=== PATIENT | male | born 1955 ===

== ENCOUNTER → 2020-06-29 10:42 | Outpatient (BNVA) | payer MEDICARE, MEDICAID, SELFPAY | PROVIDERS: PCP Internal Medicine; Visit Provider Physician Assistant | DX: Z13.89 Encounter for screening for other disorder (principal) | CPT/HCPCS: Q3014 ==

== ENCOUNTER 2020-10-05 06:30 | Day surgery (SDC) | payer MEDICARE, MEDICAID, SELFPAY ==
[2020-10-05 06:41] VITALS: BMI 32.4
[2020-10-05 06:46] VITALS: BP 121/72; PULSE 83; RESP 16; TEMP 36.7; O2SAT 97
[2020-10-05 06:54] LABS: Glucose, Whole Blood 145 mg/dL (60-115)
[2020-10-05] MEDS: Lactated Ringers 1,000 ML 100 ML IVCONT (06:55)
--- NOTE | 2020-10-05 07:13 | P.OP_ITS ---
Operative Note Operative Note Date of Service: 10/05/20 Narrative: Pre-op diagnosis: Colon cancer screening Post-op diagnosis: other (Colon polyps, diverticulosis) Procedure: COLONOSCOPY TILL CECUM WITH BIOPSIES AND SNARE POLYPECTOMY Consent: Indications for the procedure and potential complications of bleeding, perforation, reaction to medications and missed diagnosis were discussed with the patient and informed consent was obtained. Instrument: Olympus PCF H 190 L variable stiffness pediatric colonoscope Monitoring: Vital signs and clinical assessment, intermittent blood pressure monitoring, continuous EKG monitoring, Pulse oximetry and Carbon Dioxide monitoring were done throughout the procedure. Colon withdrawl time was 25 minutes. Procedure: The patient was placed in the left lateral decubitis position and pre-procedure medications were administered. After a digital rectal examination of the ano-rectum, the video colonoscope was inserted into the rectum and advanced through the colon to the cecum. The colonoscope was slowly withdrawn in a retrograde panoramic fashion and the colon mucosa was carefully examined including a retroflexed view of the rectum. Findings and interventions are described below. Procedure Difficulty: Without difficulty Findings: Terminal Ileum: Not evaluated Cecum: Normal Ascending Colon: Normal Transverse Colon: A 10-12 mm sessile polyp removed with a hot snare. A 4-5mm sessile polyp removed with the cold biopsy Descending Colon: Normal Sigmoid Colon: Four 4-8 mm sessile polyps removed with a cold biopsy. Moderate diverticulosis Rectum: A 6-7 mm sessile polyp removed with a cold biopsy. Ano-rectum: Normal Colon preparation: Good after some irrigation. Impression and Post Procedure Diagnosis: Colonoscopy Findings: Seven small to medium sized polyps removed Moderate diverticulosis seen in the sigmoid colon Plan: Await pathology results Patient has an appointment on 10/20/20 in the [facility] with DAKOTAH Moody . Repeat Colonoscopy interval based on path results - in 3-5 years if polyps are adenomatous and 10 years if polyps are hyperplastic. Above findings were reviewed with the patient and [colon polyps] and [diverticulosis] handouts were given in the discharge area Surgeon: Amarilis Vo MD Anesthesia: MAC (Elizabeth Lugo CRNA) Practical Nursing Teacher: Vijay Cast Estimated blood loss (mL): 0 Pathology: other (A- TRANSVERSE COLON POLYPS B- SIGMOID POLYPS C- RECTAL POLYP) Condition: stable Disposition: PACU
--- NOTE | 2020-10-05 07:13 | MHC.SHP ---
Pre-Procedural Eval Section A The patient is an INPATIENT: No The History & Physical has been completed within 30 days and I have reviewed it.: No Section B Chief Complaint: Screening Details of Present Illness: Colon cancer screening Relevant Family History (Specify if Yes): No Relevant Social History: None Present Medications: see Short Stay Collaborative assessment Medical History: Significant History (Back disorder Diabetes Elevated cholesterol GERD (gastroesophageal reflux disease) HTN (hypertension) Sleep apnea) History of Previous Operations: Relevant previous surgery/procedure and date(s) (History of colonoscopy) Allergies: Allergies Allergy/AdvReac Type Severity Reaction Status Date / Time Penicillins [PENICILLINS] Allergy Unknown RASH Verified 04/06/20 10:47 Review of Systems Sugical H&P ROS: Negative: Constitution, Cardiovascular, Respiratory and Gastrointestinal Exam Surgical H&P Exam: Normal: Heart, Normal: Lungs, Normal: Extremities and Normal: Abdomen Plan Diagnosis/Plan: Unchanged I have reviewed the history and physical and performed a pertinent physical examination on my patient. No changes have occurred unless specified.
--- NOTE | 2020-10-05 07:17 | HO.ANESPROP2 ---
HPI - Anesthesia Eval Consult details Narrative: 65 yo male patient for colonoscopy PMFSH Active Problems Active Problems: All Active Problems (Updated 06/29/20 @ 15:23 by Kalyani Roe PA-C) HTN (hypertension) (Acute) Encounter for screening colonoscopy (Acute) Past Medical History Medical History Back disorder Diabetes Elevated cholesterol GERD (gastroesophageal reflux disease) HTN (hypertension) Sleep apnea Family History Family History Father No family history of colorectal cancer Family history of problems with anesthesia: No Surgical History Surgical History (Updated 10/05/20 @ 07:25 by Lazara Lange) History of back surgery Hx of colonoscopy History of Problems with Anesthesia: No Social History Social History Household Members: Spouse Alcohol intake: never Smoking Status: Never smoker Use of substances other than those prescribed or required for medical reasons: No Advance Directives: No Advance Directives Information Provided: Yes Current occupational status: unemployed Meds Allergies Allergy/AdvReac Type Severity Reaction Status Date / Time Penicillins [PENICILLINS] Allergy Unknown RASH Verified 04/06/20 10:47 Home Medications Medication Instructions Recorded Confirmed Last Taken Type atorvastatin 40 mg PO BEDTIME 04/06/20 06/29/20 Unknown History canagliflozin [Invokana] 200 mg PO QAM 04/06/20 06/29/20 Unknown History celecoxib 200 mg PO BID PRN 04/06/20 06/29/20 Unknown History doxazosin 8 mg PO BEDTIME 04/06/20 04/06/20 Unknown History gemfibrozil 600 mg PO BID 04/06/20 06/29/20 Unknown History glimepiride 2 mg PO QAM 04/06/20 06/29/20 Unknown History lisinopril 10 mg PO DAILY 04/06/20 06/29/20 Unknown History loratadine 10 mg PO DAILY 04/06/20 04/06/20 Unknown History omeprazole 20 mg PO DAILY 04/06/20 06/29/20 Unknown History Exam Exam Date and Time: October 05, 202017 Height,Weight and Vital Signs: Height 5 ft 6 in Weight 91.172 kg Last Vital Signs Temp 98.0 F 10/05/20 06:46 Pulse 83 10/05/20 06:46 Resp 16 10/05/20 06:46 BP 121/72 10/05/20 06:46 Pulse Ox 97 10/05/20 06:46 Pertinent Lab Results Pertinent Lab Results: Laboratory Tests 10/05/20 06:50 POC Glucose 145 H Airway Mallampati Class: III TM Dist: >3cm Neck ROM: Full Heart: RRR Lungs: CTAB Assessment and Plan Assessment Anesthesia Assessment: Anesthesia Plan Discussed and Chart Reviewed Final Anesthetic Review NPO: Yes ASA Class: III Final Preanesthetic Review: No Changes in Pt Med Stat, Meds/Allgs Chart Reviewed, Consent Obtained/Reviewed and Anes Risks/Benef Reviewed Patient Risk: Intermediate Procedure Risk: Low Assessment/Block/Sedation in SS: Assess/Block/Sedation-SS Anesthetic Plan Anesthetic Plan: MAC: Disposition: Standard PACU
[2020-10-05 08:12] VITALS: BP 85/60; PULSE 92; RESP 14; TEMP 36.9; O2SAT 95
[2020-10-05 08:26] VITALS: BP 118/59; PULSE 83; RESP 18; O2SAT 97
== END 2020-10-05 10:26 | disposition home or self-care (01) ==
PROVIDERS: PCP Internal Medicine; Visit Provider Internal Medicine Gastroenterology
PROC: 0DJD8ZZ Inspection of Lower Intestinal Tract, Via Natural or Artificial Opening Endoscopic (ICD-10-PCS; CPT 45378; principal; 2020-10-05 07:30)
DX: Z12.11 Encounter for screening for malignant neoplasm of colon (principal); D12.3 Benign neoplasm of transverse colon; K63.5 Polyp of colon; K62.1 Rectal polyp; K57.30 Diverticulosis of large intestine without perforation or abscess without bleeding; K21.9 Gastro-esophageal reflux disease without esophagitis; I10 Essential (primary) hypertension; E11.9 Type 2 diabetes mellitus without complications; Z79.84 Long term (current) use of oral hypoglycemic drugs; Z79.899 Other long term (current) drug therapy
CPT/HCPCS: 45385; 45380; 82947; 88305

== ENCOUNTER → 2020-10-20 12:20 | Outpatient (BNVA) | payer MEDICARE, MEDICAID, SELFPAY | PROVIDERS: PCP Internal Medicine; Visit Provider Physician Assistant | DX: Z13.89 Encounter for screening for other disorder (principal) | CPT/HCPCS: Q3014 ==

== ENCOUNTER 2022-06-04 12:12 | Emergency (ER) | payer MEDICARE, SELFPAY ==
--- NOTE | ~2022-06-04 | XR_ITS ---
EXAMINATION: XR CALCANEUS, RIGHT CLINICAL INFORMATION: Right heel tenderness. COMPARISON: None TECHNIQUE: Lateral and axial views of the right calcaneus were obtained. FINDINGS: The bones and soft tissues are normal. No fracture. Alignment is anatomic. Joint spaces are maintained. No enthesopathic spurs are evident at the calcaneus. Mild to moderate atherosclerosis. XR/XR calcaneus RT min 2V IMPRESSION: Unremarkable right calcaneus.
[2022-06-04 12:46] VITALS: BP 123/80; PULSE 77; RESP 16; TEMP 36.3; O2SAT 98; BMI 31.0
--- NOTE | 2022-06-04 12:47 | ED.EXTPRO ---
HPI - Extremity Problem General Chief complaint: Extremity Injury, Lower <DAKOTAH Poole - Last Filed: 06/04/22 12:48> Stated complaint: R heel pain <DAKOTAH Poole - Last Filed: 06/04/22 12:48> Time Seen by Provider: 06/04/22 13:59 <DAKOTAH Poole - Last Filed: 06/04/22 12:48> Source: patient and traffic director <Hugo Daniels MD - Last Filed: 06/04/22 14:06> Mode of arrival: ambulatory <Hugo Daniels MD - Last Filed: 06/04/22 14:06> Limitations: no limitations <Hugo Daniels MD - Last Filed: 06/04/22 14:06> History of Present Illness HPI Narrative: 67-year-old male history of right heel pain for few months getting worse over the past 2 weeks, pain is localized to the right heel area more with movement and bearing weight, no trauma or injury to the foot, no known vascular disease. <Hugo Daniels MD - Last Filed: 06/04/22 14:06> Related Data Home medications: Home Medications Medication Instructions Recorded Confirmed atorvastatin 40 mg tablet 40 mg PO BEDTIME 04/06/20 06/29/20 canagliflozin 100 mg tablet 200 mg PO QAM 04/06/20 06/29/20 (Invokana) celecoxib 200 mg capsule 200 mg PO BID PRN Pain 04/06/20 06/29/20 doxazosin 8 mg tablet 8 mg PO BEDTIME 04/06/20 04/06/20 gemfibrozil 600 mg tablet 600 mg PO BID 04/06/20 06/29/20 glimepiride 2 mg tablet 2 mg PO QAM 04/06/20 06/29/20 lisinopril 10 mg tablet 10 mg PO DAILY 04/06/20 06/29/20 loratadine 10 mg tablet 10 mg PO DAILY 04/06/20 04/06/20 omeprazole 20 mg tablet,delayed 20 mg PO DAILY 04/06/20 06/29/20 release <DAKOTAH Poole - Last Filed: 06/04/22 12:48> Allergies/Adverse reactions: Allergies Allergy/AdvReac Type Severity Reaction Status Date / Time Penicillins [PENICILLINS] Allergy Unknown RASH Verified 10/20/20 12:20 <DAKOTAH Poole - Last Filed: 06/04/22 12:48> Review of Systems Review of Systems: All other systems are reviewed and are negative Constitutional: Reports as per HPI and Reports no additional constitutional complaints Eyes: Reports as per HPI and Reports no additional eye complaints Reports system reviewed and no additional complaints, except as documented Cardiovascular: Reports as per HPI and Reports no additional cardiovascular complaints Respiratory: Reports as per HPI and Reports no additional respiratory complaints Gastrointestinal: Reports as per HPI and Reports no additional gastrointestinal complaints Genitourinary: Reports no additional female genitourinary complaints Musculoskeletal: Reports no additional musculoskeletal complaints Skin/Breast: Reports system reviewed and no additional complaints, except as docu Psychiatric: Reports no additional psychiatric complaints Endocrine: Reports no additional endocrine complaints Hematologic/Lymphatic: Reports no additional hematologic/lymphatic complaints Allergic/Immunologic: Reports no additional allergic/immunologic complaints Reports system reviewed and no additional complaints, except as documented and Reports Abnormal speech present <Hugo Daniels MD - Last Filed: 06/04/22 14:06> [facility] Past Medical History Medical History: Medical History Back disorder Diabetes Elevated cholesterol GERD (gastroesophageal reflux disease) HTN (hypertension) Sleep apnea <DAKOTAH Poole - Last Filed: 06/04/22 12:48> Surgical History: Surgical History History of back surgery Hx of colonoscopy <DAKOTAH Poole - Last Filed: 06/04/22 12:48> Family History Family History: Family History Father No family history of colorectal cancer <DAKOTAH Poole - Last Filed: 06/04/22 12:48> Social History Social History: Social History Household Members: Spouse Alcohol intake: never Current occupational status: unemployed <DAKOTAH Poole - Last Filed: 06/04/22 12:48> Physical Exam Vital Signs: Vital Signs: Last Vital Signs Temp 97.4 F 06/04/22 12:46 Pulse 77 12/11/22 12:46 Resp 16 06/04/22 12:46 BP 123/80 06/04/22 12:46 Pulse Ox 98 06/04/22 12:46 O2 Del Method 06/04/22 12:46 BMI result Body Mass Index 31.0 <DAKOTAH Poole - Last Filed: 06/04/22 12:48> Vital Signs: Last Vital Signs Temp 97.4 F 06/04/22 12:46 Pulse 77 06/04/22 12:46 Resp 16 06/04/22 12:46 BP 123/80 06/04/22 12:46 Pulse Ox 98 06/04/22 12:46 O2 Del Method 06/04/22 12:46 BMI result Body Mass Index 31.0 Vital signs have been reviewed as appeared to be correct. Blood pressure normal. Heart rate normal. Respiration rate normal. Temperature normal. Oxygen saturation normal. <Hugo Daniels MD - Last Filed: 06/04/22 14:06> Appearance: Alert. Oriented X3. No acute distress. Head: Normal external exam. Normocephalic. Atraumatic. No [place] signs noted. No raccoon eyes noted Eyes: PERRLA. EOMI. Conjunctiva and sclera normal. Eyelids normal. ENT: TM's Normal. Pharynx normal. Uvula midline. Moist mucous membranes. No trismus noted. No drooling noted. No muffled voice noted. Neck: Normal inspection. Neck supple. FROM. No adenopathy. Thyroid Normal. No meningeal signs. No neck mass noted. CVS: Normal heart rate and rhythm. Heart sound normal. No murmurs noted. Pulses normal throughout. Respiratory: No respiratory distress. Painless inspiration. Breath sounds normal. No wheezes/rales/rhonchi noted. Chest nontender. No accessory muscle usage noted or decreased air movement noted. Abdomen: Soft and nontender. Bowel sounds normal in all 4 quadrants. No distention noted. No organomegaly noted. No visible injury noted. Back: No CVA tenderness. Full range of motion noted. Skin: Skin warm and dry. Normal skin color. Normal skin turgor. No rashes/lesions/lacerations noted. Extremities: Right heel tenderness, no redness, no hotness, neurovascular exam is intact to the right foot with a good PT/DP pulsation. Neuro: Oriented X 3. Cranial nerve exam: II-XII are grossly intact No motor deficit. No sensory deficit. Reflexes normal. <Hugo Daniels MD - Last Filed: 06/04/22 14:06> Course Course Course Narrative: RME - 67 yo male with hx DM, HTN, presenting with nontraumatic right heel pain for the last several months, acutely worse in the last 2 weeks. Difficulty ambulating. On exam no diabetic wounds noted, foot is warm and well perfused. Calcaneous is tender. XR pending. <DAKOTAH Poole - Last Filed: 06/04/22 12:48> Reevaluation(s) Reevaluation #1: Right heel pain with no trauma, x-ray is unremarkable physical exam is consistent with right plantar fasciitis patient was instructed to take NSAIDs Q 6 hour if needed and follow-up with legal officer <Hugo Daniels MD - Last Filed: 06/04/22 14:06> Time: 14:03 <Hugo Daniels MD - Last Filed: 06/04/22 14:06> Medical Decision Making Medical Decision Making Differential Diagnoses: Differential diagnosis (Plantar fasciitis, arthritis, fracture.) <Hugo Daniels MD - Last Filed: 06/04/22 14:06> Independent interpretation of EKG, rhythm strip, radiology study: Independent interp EKG,rhythm strip, radiology study I performed an independent interpretation of the: Plain X-Ray (Right heel) My interpretation is no acute fracture <Hugo Daniels MD - Last Filed: 06/04/22 14:06> Discharge Plan Discharge Clinical Impression: Plantar fasciitis of right foot <DAKOTAH Poole - Last Filed: 06/04/22 12:48> Patient Disposition: Home, Self-Care <DAKOTAH Poole - Last Filed: 06/04/22 12:48> Instructions: Plantar Fasciitis (ED) <DAKOTAH Poole - Last Filed: 06/04/22 12:48> Prescriptions: No Action celecoxib 200 mg Capsule 200 mg PO BID PRN (Reason: Pain) atorvastatin 40 mg Tablet 40 mg PO BEDTIME glimepiride 2 mg Tablet 2 mg PO QAM doxazosin 8 mg Tablet 8 mg PO BEDTIME gemfibrozil 600 mg Tablet 600 mg PO BID lisinopril 10 mg Tablet 10 mg PO DAILY loratadine 10 mg Tablet 10 mg PO DAILY omeprazole 20 mg Tablet,Delayed Release (Dr/Ec) 20 mg PO DAILY Invokana 100 mg Tablet 200 mg PO QAM <DAKOTAH Poole - Last Filed: 06/04/22 12:48> Referrals: Naa Chase MD [Primary Care Provider] - Robert Garcia MD [Physician] - Joseluis Garcia DPM [Physician] - <DAKOTAH Poole - Last Filed: 06/04/22 12:48>
== END 2022-06-04 14:47 | disposition home or self-care (01) ==
PROVIDERS: Emergency Provider Emergency Medicine; PCP Internal Medicine
DX: M72.2 Plantar fascial fibromatosis (principal)
CPT/HCPCS: 73650; 99282; 99283

== ENCOUNTER 2022-08-01 17:06 | Emergency (ER) | payer MEDICARE, SELFPAY ==
--- NOTE | ~2022-08-01 | XR_ITS ---
EXAMINATION: XR CHEST CLINICAL INFORMATION: Right sternal border/notch lump COMPARISON: None TECHNIQUE: 2 views of the chest were obtained. FINDINGS: The lungs are clear. No airspace consolidation, pleural effusion, or pneumothorax. The cardiomediastinal silhouette is within normal limits. No acute osseous injury. Assessment of the sternum and parasternal soft tissues/costochondral cartilage is significantly limited via plain radiography. XR/XR chest 2V IMPRESSION: 1. No acute pulmonary process. 2. Assessment of the sternum and paraspinal soft tissues is significantly limited via plain radiography.
[2022-08-01 17:38] VITALS: BP 144/77; PULSE 73; RESP 20; TEMP 36.2; O2SAT 98; BMI 32.1
--- NOTE | 2022-08-01 17:39 | ED_ITS ---
HPI - General Adult General Chief complaint: Skin/Abscess/Foreign Body Stated complaint: Lump on clavicle Related Data Home Medications Medication Instructions Recorded Confirmed atorvastatin 40 mg tablet 40 mg PO BEDTIME 04/06/20 06/29/20 canagliflozin 100 mg tablet 200 mg PO QAM 04/06/20 06/29/20 (Invokana) celecoxib 200 mg capsule 200 mg PO BID PRN Pain 04/06/20 06/29/20 doxazosin 8 mg tablet 8 mg PO BEDTIME 04/06/20 04/06/20 gemfibrozil 600 mg tablet 600 mg PO BID 04/06/20 06/29/20 glimepiride 2 mg tablet 2 mg PO QAM 04/06/20 06/29/20 lisinopril 10 mg tablet 10 mg PO DAILY 04/06/20 06/29/20 loratadine 10 mg tablet 10 mg PO DAILY 04/06/20 04/06/20 omeprazole 20 mg tablet,delayed 20 mg PO DAILY 04/06/20 06/29/20 release Allergies Allergy/AdvReac Type Severity Reaction Status Date / Time Penicillins [PENICILLINS] Allergy Unknown RASH Verified 10/20/20 12:20 [facility] Past Medical History Medical History Back disorder Diabetes Elevated cholesterol GERD (gastroesophageal reflux disease) HTN (hypertension) Sleep apnea Surgical History History of back surgery Hx of colonoscopy Family History Family History Father No family history of colorectal cancer Social History Social History Household Members: Spouse Alcohol intake: never Advance Directives: No Advance Directives Information Provided: No Current occupational status: unemployed Physical Exam ED Vital Signs: Vital Signs - 24 hr 08/01/22 17:38 Temperature 97.2 F Pulse Rate 73 Respiratory Rate 20 Blood Pressure 144/77 H Pulse Oximetry 98 Oxygen Delivery Method Room Air BMI result Body Mass Index 32.1 Course Course Course Narrative: This is an RME: Additional HPI, ROS, PE not included below will be deferred to primary provider. Patient is a 59 male presents emergency department for evaluation of a lump that is felt to the right upper anterior chest, noticed yesterday for the first time while taking a shower. palpable lump to right sternal border just beneath sternal notch. Non painful, non mobile, feels firm in parts. Denies noticing in past. Denies chest pain, shortness of breath, difficulty breathing, cough. Denies injury. Plan: labs, CXR Medical Decision Making Lab Data 08/01/22 19:06 08/01/22 19:06 Labs: Lab Results 08/01/22 08/01/22 Range/Units 19:06 19:06 WBC 6.5 (4.8-10.8) X10*3/uL RBC 5.62 (4.60-5.80) X10*6/uL Hgb 16.3 (14.0-18.0) g/dl Hct 47.8 (42.0-52.0) % MCV 85.1 (80.0-98.0) fL MCH 29.0 (27.0-33.0) pg MCHC 34.1 (31.0-36.0) g/dl RDW 13.0 (11.0-16.0) % Plt Count 147 L (160-400) X10*3/uL MPV 11.4 (9.4-12.4) fL Immature Gran % (Auto) 0.2 (0.0-0.4) % Neut % (Auto) 60.9 (45-73) % Lymph % (Auto) 28.1 (20-40) % [place] % (Auto) 8.8 (2-11) % Eos % (Auto) 1.2 (0-4) % Baso % (Auto) 0.8 (0-2) % Lymph # (Auto) 1.8 (1.2-4.9) X10*3/uL [place] # (Auto) 0.6 (0.1-1.2) X10*3/uL Eos # (Auto) 0.1 (0.0-0.4) X10*3/uL Baso # (Auto) 0.1 (0.0-0.2) X10*3/uL Abs Immat Gran (auto) 0.01 (0.00-0.03) X10*3/uL Absolute Neuts (auto) 3.9 (2.0-8.3) x10*3/uL Absolute Nucleated RBC 0.000 (0.0-0.012) X10*3/uL Nucleated RBC % (auto) 0.0 (0.0-0.2) /100WBC Sodium 139 (135-145) mmol/L Potassium 4.4 (3.3-5.1) mmol/L Chloride 104 (96-108) mmol/L Carbon Dioxide 26 (22-29) mmol/L Anion Gap 13 (12-20) BUN 18 H (9-16) mg/dL Creatinine 1.15 (0.5-1.4) mg/dL Estim Creat Clear Calc 64.6 Estimated GFR > 60 Random Glucose 135 H (60-115) mg/dL Calcium 9.6 (8.4-10.2) mg/dL Total Bilirubin 0.7 (0.0-1.0) mg/dL AST 17 (5-37) U/L ALT 22 (0-40) U/L Alkaline Phosphatase 108 (39-117) U/L Total Protein 7.4 (6.5-8.0) g/dL Albumin 4.2 (3.5-5.0) g/dL Discharge Plan Discharge Prescriptions: No Action celecoxib 200 mg Capsule 200 mg PO BID PRN (Reason: Pain) atorvastatin 40 mg Tablet 40 mg PO BEDTIME glimepiride 2 mg Tablet 2 mg PO QAM doxazosin 8 mg Tablet 8 mg PO BEDTIME gemfibrozil 600 mg Tablet 600 mg PO BID lisinopril 10 mg Tablet 10 mg PO DAILY loratadine 10 mg Tablet 10 mg PO DAILY omeprazole 20 mg Tablet,Delayed Release (Dr/Ec) 20 mg PO DAILY Invokana 100 mg Tablet 200 mg PO QAM
[2022-08-01 19:17] LABS: MANUAL DIFF FLAG NO
[2022-08-01 19:22] LABS: Basophils Absolute Auto 0.1 X10*3/uL (0.0-0.2); Basophils Percent Auto 0.8 % (0-2); Eosinophils Absolute Auto 0.1 X10*3/uL (0.0-0.4); Eosinophils Percent Auto 1.2 % (0-4); Hematocrit 47.8 % (42.0-52.0); Hemoglobin 16.3 g/dl (14.0-18.0); Imm Gran Abs Auto 0.01 X10*3/uL (0.00-0.03); Imm Gran Pct Auto 0.2 % (0.0-0.4); Lymphocytes Absolute Auto 1.8 X10*3/uL (1.2-4.9); Lymphocytes Percent Auto 28.1 % (20-40); Mean Corpuscular HGB Conc 34.1 g/dl (31.0-36.0); Mean Corpuscular Volume 85.1 fL (80.0-98.0); Mean Platelet Volume 11.4 fL (9.4-12.4); Monocytes Absolute Auto 0.6 X10*3/uL (0.1-1.2); Monocytes Percent Auto 8.8 % (2-11); Neutrophils Absolute Auto 3.9 x10*3/uL (2.0-8.3); Neutrophils Percent Auto 60.9 % (45-73); Platelet Count 147 X10*3/uL (160-400); Red Blood Count 5.62 X10*6/uL (4.60-5.80); White Blood Count 6.5 X10*3/uL (4.8-10.8)
[2022-08-01 19:33] LABS: Alanine Aminotransferase 22 U/L (0-40); Albumin Level 4.2 g/dL (3.5-5.0); Alkaline Phosphatase 108 U/L (39-117); Anion Gap 13 (12-20); Aspartate Amino Transferase 17 U/L (5-37); Bilirubin Total 0.7 mg/dL (0.0-1.0); Blood Urea Nitrogen 18 mg/dL (9-16); Calcium 9.6 mg/dL (8.4-10.2); Carbon Dioxide 26 mmol/L (22-29); Chloride 104 mmol/L (96-108); Creatinine Clr Calc Pharmacy 64.6; Estimated Glomerular Filt Rate > 60; Glucose Random 135 mg/dL (60-115); Potassium 4.4 mmol/L (3.3-5.1); Sodium 139 mmol/L (135-145); Total Protein 7.4 g/dL (6.5-8.0)
--- NOTE | 2022-08-01 21:14 | ED.GENADULT ---
HPI - General Adult General Chief complaint: Skin/Abscess/Foreign Body Stated complaint: Lump on clavicle Time Seen by Provider: 08/01/22 21:05 Source: patient Mode of arrival: ambulatory Limitations: no limitations History of Present Illness HPI narrative: 59-year-old male presents emergency room complaining of more prominence to medial aspect of his right clavicle. Patient is any falls or injuries he has no redness or swelling that is larger so came in for evaluation. He has noticed this prior to today when he was showering. Related Data Home Medications Medication Instructions Recorded Confirmed atorvastatin 40 mg tablet 40 mg PO BEDTIME 04/06/20 06/29/20 canagliflozin 100 mg tablet 200 mg PO QAM 04/06/20 06/29/20 (Invokana) celecoxib 200 mg capsule 200 mg PO BID PRN Pain 04/06/20 06/29/20 doxazosin 8 mg tablet 8 mg PO BEDTIME 04/06/20 04/06/20 gemfibrozil 600 mg tablet 600 mg PO BID 04/06/20 06/29/20 glimepiride 2 mg tablet 2 mg PO QAM 04/06/20 06/29/20 lisinopril 10 mg tablet 10 mg PO DAILY 04/06/20 06/29/20 loratadine 10 mg tablet 10 mg PO DAILY 04/06/20 04/06/20 omeprazole 20 mg tablet,delayed 20 mg PO DAILY 04/06/20 06/29/20 release Allergies Allergy/AdvReac Type Severity Reaction Status Date / Time Penicillins [PENICILLINS] Allergy Unknown RASH Verified 10/20/20 12:20 Review of Systems Review of Systems: Review of systems: General: Patient denies any fever chills recent illness or falls Musculoskeletal: Denies back pain or body aches or other injuries HEENT: denies headache, runny nose, ear pain Respiratory: denies shortness of breath, cough Cardiovascular: no chest pain or palpitations : denies dysuria, frequency Abdomen: no nausea vomiting denies abdominal pain Extremities: no swelling, no pain Skin: no diaphoresis Yes all other systems are reviewed and are negative PMFSH Past Medical History Medical History Back disorder Diabetes Elevated cholesterol GERD (gastroesophageal reflux disease) HTN (hypertension) Sleep apnea Surgical History History of back surgery Hx of colonoscopy Family History Family History Father No family history of colorectal cancer Social History Social History Household Members: Spouse Alcohol intake: never Advance Directives: No Advance Directives Information Provided: No Current occupational status: unemployed Physical Exam ED Vital Signs: Vital Signs - 24 hr 08/01/22 17:38 Temperature 97.2 F Pulse Rate 73 Respiratory Rate 20 Blood Pressure 144/77 H Pulse Oximetry 98 Oxygen Delivery Method Room Air BMI result Body Mass Index 32.1 General: Well-appearing well-nourished in no signs of distress HEENT: Normocephalic atraumatic Neck: No signs of JVD, no masses no tenderness or lymphadenopathy Cardiovascular: Regular rate and rhythm Respiratory: Clear to auscultation bilaterally Chest wall the medial aspect of the right clavicle is more prominent than left is nontender patient has no redness Abdomen: Soft nontender no masses rectal exam performed guiac negative quality assurance associate confirmed. Extremities: Normal pedal pulses no signs of edema Skin: Dry warm no rashes Back: No tenderness full ROM Medical Decision Making Medical Decision Making MDM Narrative: X-ray does not show anything of concern I feel comfortable discharging the patient home. Differential Diagnosis Differential Diagnoses: The differential diagnosis associated with the presentation includes Abscess versus cancer versus previous fracture or anatomical variance. Lab Data 08/01/22 19:06 08/01/22 19:06 Labs: Lab Results 08/01/22 08/01/22 Range/Units 19:06 19:06 WBC 6.5 (4.8-10.8) X10*3/uL RBC 5.62 (4.60-5.80) X10*6/uL Hgb 16.3 (14.0-18.0) g/dl Hct 47.8 (42.0-52.0) % MCV 85.1 (80.0-98.0) fL MCH 29.0 (27.0-33.0) pg MCHC 34.1 (31.0-36.0) g/dl RDW 13.0 (11.0-16.0) % Plt Count 147 L (160-400) X10*3/uL MPV 11.4 (9.4-12.4) fL Immature Gran % (Auto) 0.2 (0.0-0.4) % Neut % (Auto) 60.9 (45-73) % Lymph % (Auto) 28.1 (20-40) % [place] % (Auto) 8.8 (2-11) % Eos % (Auto) 1.2 (0-4) % Baso % (Auto) 0.8 (0-2) % Lymph # (Auto) 1.8 (1.2-4.9) X10*3/uL [place] # (Auto) 0.6 (0.1-1.2) X10*3/uL Eos # (Auto) 0.1 (0.0-0.4) X10*3/uL Baso # (Auto) 0.1 (0.0-0.2) X10*3/uL Abs Immat Gran (auto) 0.01 (0.00-0.03) X10*3/uL Absolute Neuts (auto) 3.9 (2.0-8.3) x10*3/uL Absolute Nucleated RBC 0.000 (0.0-0.012) X10*3/uL Nucleated RBC % (auto) 0.0 (0.0-0.2) /100WBC Sodium 139 (135-145) mmol/L Potassium 4.4 (3.3-5.1) mmol/L Chloride 104 (96-108) mmol/L Carbon Dioxide 26 (22-29) mmol/L Anion Gap 13 (12-20) BUN 18 H (9-16) mg/dL Creatinine 1.15 (0.5-1.4) mg/dL Estim Creat Clear Calc 64.6 Estimated GFR > 60 Random Glucose 135 H (60-115) mg/dL Calcium 9.6 (8.4-10.2) mg/dL Total Bilirubin 0.7 (0.0-1.0) mg/dL AST 17 (5-37) U/L ALT 22 (0-40) U/L Alkaline Phosphatase 108 (39-117) U/L Total Protein 7.4 (6.5-8.0) g/dL Albumin 4.2 (3.5-5.0) g/dL Discharge Plan Discharge Clinical Impression: Lump in chest Patient Disposition: Home, Self-Care Instructions: Soft Tissue Chest Tumor (ED) Additional Instructions: Please call to follow up with your doctor. Prescriptions: No Action celecoxib 200 mg Capsule 200 mg PO BID PRN (Reason: Pain) atorvastatin 40 mg Tablet 40 mg PO BEDTIME glimepiride 2 mg Tablet 2 mg PO QAM doxazosin 8 mg Tablet 8 mg PO BEDTIME gemfibrozil 600 mg Tablet 600 mg PO BID lisinopril 10 mg Tablet 10 mg PO DAILY loratadine 10 mg Tablet 10 mg PO DAILY omeprazole 20 mg Tablet,Delayed Release (Dr/Ec) 20 mg PO DAILY Invokana 100 mg Tablet 200 mg PO QAM
[2022-08-01 21:25] VITALS: BP 110/74; PULSE 70; RESP 16; TEMP 36.4; O2SAT 99
== END 2022-08-01 21:35 | disposition home or self-care (01) ==
PROVIDERS: Nurse Practitioner Family; Emergency Provider Student in an Organized Health Care Education/Training Program; PCP Internal Medicine
DX: R22.2 Localized swelling, mass and lump, trunk (principal); Z79.899 Other long term (current) drug therapy
CPT/HCPCS: 36415; 71046; 80053; 85025; 99282; 99283

== ENCOUNTER 2023-10-31 10:55 | Outpatient (REF) | payer MEDICARE, SELFPAY ==
[2023-10-31 15:04] LABS: Alanine Aminotransferase 24 U/L (0-40); Alkaline Phosphatase 82 U/L (39-117); Anion Gap 13 (12-20); Aspartate Amino Transferase 21 U/L (5-37); Bilirubin Total 0.7 mg/dL (0.0-1.0); Blood Urea Nitrogen 18 mg/dL (9-16); Calcium 9.2 mg/dL (8.4-10.2); Carbon Dioxide 24 mmol/L (22-29); Chloride 107 mmol/L (96-108); Cholesterol 163 mg/dL (<200); Estimated Glomerular Filt Rate > 60; Glucose Random 170 mg/dL (60-115); HDL Cholesterol 35 mg/dL (>40); LDL Cholesterol Calculated 68 mg/dL (<100); Potassium 3.6 mmol/L (3.3-5.1); Sodium 140 mmol/L (135-145); Total Protein 7.3 g/dL (6.5-8.0); Triglycerides 300 mg/dL (<150)
[2023-10-31 15:11] LABS: Creatinine Urine 91.36 mg/dL; Microalbum/Creatinine Ratio Ur 51.4 ug/mg cr (<30)
[2023-10-31 15:21] LABS: TSH reflex Free T4 1.41 uIU/mL (0.32-4.0)
== END 2023-10-31 10:56 | disposition home or self-care (01) ==
LOC: HO.CHCLDS 10:55
PROVIDERS: Visit Provider Internal Medicine
DX: Z00.00 Encounter for general adult medical examination without abnormal findings (principal); E11.9 Type 2 diabetes mellitus without complications; E78.49 Other hyperlipidemia
CPT/HCPCS: 36415; 80053; 80061; 82043; 82570; 84443

== ENCOUNTER 2024-04-02 10:53 | Outpatient (AMB) | payer OTHER, SELFPAY ==
[2024-04-02 10:56] VITALS: BP 146/84; PULSE 60; O2SAT 98; BMI 32.1
--- NOTE | 2024-04-02 10:56 | A.OFFVIS_ITS ---
Vital Signs 04/02/24 10:56 Height 5 ft 7 in Weight 205 lb 0.478 oz BMI 32.1 BP 146/84 H Blood Pressure Location Lt brachial Position Sitting Pulse 60 Pulse Source Pulse Oximeter Pulse Oximetry (%) 98 Oxygen Delivery Method Room Air Intake Visit Reasons: Colonoscopy screening Intake Note: Geovanni presents in office today for a scheduled colo consult CC; Pt had cologuard ordered by his PCP. Pt did not decide to exercise this option. This is a recall colo for this pt (q10 years). Pt believes that he might have had polyps per his last colo but cannot recall. Pt recently lost his son (10/2023) Pickling Drum Operator Required: Yes Pickling Drum Operator Name: [facility] welcome desk agent(Provider only) Allergies Penicillins [PENICILLINS] Allergy (Unknown, Verified 04/02/24 10:57) RASH HPI HPI Colonoscopy screening: Details: LAST VISIT WITH GIGI ETHAN 10/20/2020 65-year-old male follows up after recent colonoscopy. Review procedure report as well as pathology. He and his were present on phone conversation while vacationing in [place]. He is aware asymptomatic repeat colonoscopy due to polyps will be in [address] a reminder. As well there is a letter in process that is going to be sent to his home address by -if he has any questions when returning from [place] he will call us with concerns. We appreciate the opportunity assist in care the patient This note constructed using a voice recognition software. While every effort is taken to ensure accuracy loading unit operator powder charging errors may be included. TODAY'S VISIT Patient is here today to discuss going for colonoscopy last colonoscopy in 2020 as mentioned above. Tubular adenoma without high-grade dysplasia or carcinoma found. Recommendation for 3 years screening. Patient denies any issues with anesthesia in the past. No history of sleep apnea. Not on any anticoagulation medication. Patient reports that he is moving his bowels without any issues. No infectious diseases in the past or present. No family history of CRC. Patient denies any cardiac or respiratory symptoms. [facility] Medical History Back disorder GERD (gastroesophageal reflux disease) Diabetes Sleep apnea Elevated cholesterol HTN (hypertension) Surgical History History of back surgery Hx of colonoscopy Family History Father No family history of colorectal cancer Social History Household Members: Spouse Alcohol intake: never Current occupational status: unemployed Review of Systems Const Denies weight gain and Denies weight loss ENT Reports no additional complaints, Denies dysphagia and Denies odynophagia Card Reports no additional complaints Resp Reports no additional complaints GI Denies abdominal pain, Denies belching, Denies melena, Denies bloating, Denies change in bowel habits, Denies dysphagia, Denies excessive flatus, Denies dyspepsia, Denies heartburn, Denies diarrhea, Denies loose stools, Denies nausea, Denies odynophagia and Denies vomiting Reports no additional complaints Musc Reports no additional complaints Neuro Reports no additional complaints Psych Reports no additional complaints Endo Reports no additional complaints Physical Exam Vital Signs: Last Vital Signs Pulse 60 04/02/24 10:56 BP 146/84 H 04/02/24 10:56 Pulse Ox 98 04/02/24 10:56 Oxygen Delivery Method Room Air 04/02/24 10:56 BMI result Body Mass Index 32.1 Const General: healthy appearing and no acute distress Nutritional Appearance: obese Orientation/consciousness: patient oriented x3 Resp Effort & Inspection: normal respiratory effort, able to speak in complete sentences, no tracheal deviation and symmetric chest movement Auscultation: clear to auscultation bilaterally Cardio Rate: regular rate GI Inspection: Yes normal to inspection, No distended and Yes obesity Palpation (GI): Soft to palpation, not firm, nontender and No hepatosplenomegaly present Auscultation: normal bowel sounds General: Yes no CVA tenderness Back/Spine/Pelvis Back: no CVA tenderness Skin General skin exam: elasticity normal, turgor normal and dry skin Neuro General: patient oriented x3 Psych Appearance: grossly normal Mental Status: mental status grossly normal Assessment & Plan Assessment & Plan (1) Diverticulosis large intestine w/o perforation or abscess w/o bleeding: Comment: Maintain high-fiber diet Code(s): K57.30 - Diverticulosis of large intestine without perforation or abscess without bleeding Category: Medical (2) Tubular adenoma: Comment: 65-year-old male, to tubular adenomas and 5 hyperplastic polyp recommend repeat asymptomatic colonoscopy 3 year Code(s): D36.9 - Benign neoplasm, unspecified site Category: Medical (3) Screen for colon cancer: Code(s): Z12.11 - Encounter for screening for malignant neoplasm of colon Plan What to expect before during and after procedure discussed with patient. Patient is familiar as he just had the procedure 3 years ago. Stressed the importance of good bowel prep day before procedure. Clear liquid diet discussed with patient. I will see patient after the procedure. Request to book colonoscopy sent to surgical schedulers. Patient is on Trulicity and is aware that he needs to stop it 7-8 days before the procedure. He is agreeable to this plan and verbalizes understanding of instructions. He was given the opportunity to ask questions and all questions answered. thank you for allowing me in his care Medications: New bisacodyl (Dulcolax (bisacodyl)) take 4 tabs at noon the day before your colonoscopy 20 mg (4 x 5 mg) PO ONCE 1 day 4 tabs 0RF Z12.11 - Encounter for screening for malignant neoplasm of colon polyethylene glycol 3350 (Miralax) As directed by gastro[facility]ology department at [facility] 238 grams PO ONCE 238 grams 0RF Z12.11 - Encounter for screening for malignant neoplasm of colon Coding Level of Care Code New Pt Level 3 (98739) Diagnoses Diverticulosis large intestine w/o perforation or abscess w/o bleeding K57.30 Tubular adenoma D36.9 Screen for colon cancer Z12.11 Time Spent (min) 40 Comment 30 minutes spent with patient and additional 10 minutes spent reviewing his records
== END 2024-04-02 11:47 | disposition home or self-care (01) ==
PROVIDERS: PCP Internal Medicine; Visit Provider Nurse Practitioner Family
DX: K57.30 Diverticulosis of large intestine without perforation or abscess without bleeding (principal); D36.9 Benign neoplasm, unspecified site; Z12.11 Encounter for screening for malignant neoplasm of colon
CPT/HCPCS: 99203

== ENCOUNTER → 2024-04-02 10:53 | Outpatient (BNVA) | payer OTHER, SELFPAY | PROVIDERS: PCP Internal Medicine; Visit Provider Nurse Practitioner Family | DX: K57.30 Diverticulosis of large intestine without perforation or abscess without bleeding (principal); D36.9 Benign neoplasm, unspecified site; Z12.11 Encounter for screening for malignant neoplasm of colon | CPT/HCPCS: 99202 ==

== ENCOUNTER 2024-07-02 14:36 | Outpatient (REF) | payer OTHER, SELFPAY ==
[2024-07-02 18:08] LABS: Cholesterol 134 mg/dL (<200); HDL Cholesterol 32 mg/dL (>40); LDL Cholesterol Calculated 55 mg/dL (<100); Triglycerides 235 mg/dL (<150)
[2024-07-03 08:01] LABS: ~HepC Num1 0.18 S/CO (0.00-0.79); ~Hepatitis C Antibody Nonreactive (Nonreactive)
== END 2024-07-02 14:37 | disposition home or self-care (01) ==
LOC: HO.CHCLDS 14:36
PROVIDERS: Visit Provider Internal Medicine
DX: E78.49 Other hyperlipidemia (principal); I10 Essential (primary) hypertension; E11.9 Type 2 diabetes mellitus without complications
CPT/HCPCS: 36415; 80061; 86803

== ENCOUNTER 2024-07-10 16:22 | Outpatient (REF) | payer OTHER, SELFPAY | END 2024-07-10 16:23 | disposition home or self-care (01) | LOC: HO.CHCLNP 16:22 | PROVIDERS: Visit Provider Internal Medicine | DX: R10.2 Pelvic and perineal pain (principal); R30.0 Dysuria; N41.0 Acute prostatitis | CPT/HCPCS: 87086 ==

== ENCOUNTER 2024-09-16 15:07 | Outpatient (REF) | payer OTHER, SELFPAY | END 2024-09-16 15:08 | disposition home or self-care (01) | LOC: HO.SH 15:07 | PROVIDERS: Visit Provider Internal Medicine | DX: Z01.118 Encounter for examination of ears and hearing with other abnormal findings (principal); H90.3 Sensorineural hearing loss, bilateral | CPT/HCPCS: 92557 ==

== ENCOUNTER 2024-11-05 10:36 | Outpatient (REF) | payer OTHER, SELFPAY ==
--- OUTSIDE RECORDS SUMMARY | 2024-11-05 11:39 | XMS_ITS | Encounter Summary ---
Author Organization [employer] Address [address] [facility] [address] [place] [address] Care Team Providers Care Coffee Urn Attendant Name Role Phone Naa Chase MD Primary Care Provider [phone] Reason for Visit * Reason Comments Med Refill Encounter Details Date Type Department Care Team ([facility] Contact Info) Description 12/17/2022 Refill [facility] [address] [place] [address] Genevieve Chaudhry DO [address] [place] [address] Type 2 diabetes mellitus without complication, without long-term current use of insulin ([facility]) Social History Tobacco Use Types Packs/Day Years Used Date Smoking Tobacco: Never Passive Smoke Exposure: Never Smokeless Tobacco: Never Alcohol Use Standard Drinks/Week Comments Never 0 (1 standard drink = 0.6 oz pur e alcohol) Depression Answer Date Recorded Patient Health Questionnaire-9 Score 0 10/19/2022 Depression Answer Date Recorded Patient Health Questionnaire-2 Score 0 10/19/2022 Sex and Gender Information Value Date Recorded Sex Assigned at Male 04/24/2022 10:16 AM EDT Legal Sex Male 10:16 AM EDT Gender Identity Male 04/24/2022 10:16 AM EDT Sexual Orientation Choose not to disclose 2021 10:16 AM EDT documented as of this encounter Plan of Treatment Upcoming Encounters Date Type Department Care Team ([facility] Contact Info) Description 02/09/2025 10:00 AM EDT Office Visit [facility] [address] [place] [address] Naa Chase MD [address] [place] [address] documented as of this encounter Visit Diagnoses Diagnosis Type 2 diabetes mellitus without complication, without long-term current use of insulin ([facility]) documented in this encounter Additional Health Concerns Assessment Noted Time PHQ-9 Depression Total Score: 0 10/20/19 23 10:42 AM EDT documented as of this encounter Care Teams Coffee Urn Attendant Relationship Specialty Start Date End Date Naa Chase MD [address] [place] [address] PCP - General Internal Medicine 02/19/14 documented as of this encounter
--- OUTSIDE RECORDS SUMMARY | 2024-11-05 11:39 | XMS_ITS | Encounter Summary ---
Author Organization [employer] Address [address] [facility] [address] [place] [address] Care Team Providers Care Panel Machine Setter Name Role Phone Naa Chase MD Primary Care Provider [phone] Reason for Visit * Reason Comments Med Refill Encounter Details Date Type Department Care Team ([facility] st Contact Info) Description 10/14/2024 Refill [facility] [address] [place], [place] [phone] Naa Chase MD [address] [place] [address] Type 2 diabetes mellitus without complication, without long-term current use of insulin ([facility]) Social History Tobacco Use Types Packs/Day Years Used Date Smoking Tobacco: Never Passive Smoke Exposure: Never Smokeless Tobacco: Never Alcohol Use Standard Drinks/Week Comments Never 0 (1 standard drink = 0.6 oz pur e alcohol) Depression Answer Date Recorded Patient Health Questionnaire-9 Score 0 07/10/2024 Patient Health Questionnaire-9 Score 0 07/10/2024 Last PHQ-9: Questionnaire Data Not on file 0 07/10/2024 Housing Stability Answer Date Recorded What is your housing situation today? I have alexy sing 10/23/[address] you li ve. Do you have problems with any of the following? None of the above 10/23/2023 Food Insecurity Answer Date Recorded Within the past 12 months, y ou worried that your food would run out before you got money to buy more: Never True 10/23/2023 Within the past 12 months,th e food you bought just didn't last and you didn't have enough money to get more: Never True Transportation Answer Date Recorded In the past 12 months, has l ack of transportation kept you from medical appts, meetings, work or from getting things needed for daily living? No 10/23/2023 Utilities Answer Date Recorded In the past 12 months, has t he electric, gas, oil or water company threatened to shut off services in your home? No 10/23/2023 Depression Answer Date Recorded Patient Health Questionnaire-2 Score 0 07/10/2024 Internet Access Answer Date Recorded Internet Access Q1 Yes 07/10/2024 Internet Access Q2 Not on file 07/10/2024 Sex and Gender Information Value Date Recorded Sex Assigned at Male 04/24/2022 10:16 AM EDT Legal Sex Male 10:16 AM EDT Gender Identity Male 04/24/2022 10:16 AM EDT Sexual Orientation Choose not to disclose 2021 10:16 AM EDT documented as of this encounter Plan of Treatment Upcoming Encounters Date Type Department Care Team ([facility] st Contact Info) Description 02/09/2025 10:00 AM EDT Office Visit [facility] [address] [place] [address] Naa Chase MD [address] [place] [address] documented as of this encounter Visit Diagnoses Diagnosis Type 2 diabetes mellitus without complication, without long-term current use of insulin ([facility]) documented in this encounter Additional Health Concerns Assessment Noted Time PHQ-9 Depression Total Score: 0 07/10/19 25 4:16 PM EST documented as of this encounter Care Teams Panel Machine Setter Relationship Specialty Start Date End Date Naa Chase MD [address] [place] [address] PCP - General Internal Medicine 02/19/14 documented as of this encounter
--- OUTSIDE RECORDS SUMMARY | 2024-11-05 11:39 | XMS_ITS | Encounter Summary ---
Author Organization [employer] Address [address] [facility] [address] [place] [address] Care Team Providers Care Back Stayer Name Role Phone Naa Chase MD Primary Care Provider [phone] Encounter Details Date Type Department Care Team ([facility] st Contact Info) Description 10/30/2024 Orders Only [facility] [address] [place], [place] [phone] Naa Chase MD [address] [place], [place] [phone] Type 2 diabetes mellitus without complication, without long-term current use of insulin ([facility]) (Primary Dx) Social History Tobacco Use Types Packs/Day Years [...] your housing situation today? I have alexy morales 10/23/[address] you li [...] Upcoming Encounters Date Type Department Care Team (Late st Contact Info) Description 02/09/2025 10:00 AM EDT Office Visit [facility] [address] [place] [address] Naa Chase MD [address] [place] [address] documented as of this encounter Visit Diagnoses Diagnosis Type 2 diabetes mellitus without complication, without long-term current use of insulin ([facility])- Primary documented in this encounter Additional Health Concerns Assessment Noted Time PHQ-9 Depression Total Score: 0 07/10/19 25 4:16 PM EST documented as of this encounter Care Teams Back Stayer Relationship Specialty Start Date End Date Naa Chase MD [address] [place] [address] PCP - General Internal Medicine 02/19/14 documented as of this encounter
--- OUTSIDE RECORDS SUMMARY | 2024-11-05 11:39 | XMS_ITS | Encounter Summary ---
Author Organization [employer] Address [address] [facility] [address] [place] [address] Care Team Providers Care Engine Manager Name Role Phone Naa Chase MD Primary Care Provider [phone] Encounter Details Date Type Department Care Team ([facility] st Contact Info) Description 10/15/2024 Orders Only [facility] [address] [place], [place] [phone] Naa Chase MD [address] [place], [place] [phone] Type 2 diabetes mellitus without complication, without long-term current use of insulin ([facility]) (Primary Dx) Social History Tobacco Use Types [...] Description 02/09/2025 10:00 AM EDT Office Visit [facility] [address] [place] [address] Naa Chase MD [address] [place] [address] documented as of this encounter Visit Diagnoses Diagnosis Type 2 diabetes mellitus without complication, without long-term current use of insulin ([facility])- Primary documented in this encounter Additional Health Concerns Assessment Noted Time PHQ-9 Depression Total Score: 0 07/10/19 25 4:16 PM EST documented as of this encounter Care Teams Engine Manager Relationship Specialty Start Date End Date Naa Chase MD [address] [place] [address] PCP - General Internal Medicine 02/19/14 documented as of this encounter
--- OUTSIDE RECORDS SUMMARY | 2024-11-05 11:39 | XMS_ITS | Encounter Summary ---
Author Organization [employer] Address [address] [facility] [address] [place] [address] Care Team Providers Care Corn Detasseler Machine Operator Name Role Phone Naa Chase MD Primary Care Provider [phone] Reason for Visit * Reason Comments Med Refill Encounter Details Date Type Department Care Team ([facility] Contact Info) Description 11/23/2022 Refill [facility] [address] [place] [address] Genevieve Chaudhry DO [address] [place] [address] Type 2 diabetes mellitus without complication, without long-term current use of insulin ([facility]) Social History Tobacco Use Types Packs/Day Years [...] Upcoming Encounters Date Type Department Care Team ([facility] Contact Info) Description 02/09/2025 10:00 AM EDT Office Visit [facility] [address] [place] [address] Naa Chase MD [address] [place] [address] documented as of this encounter Visit Diagnoses Diagnosis Type 2 diabetes mellitus without complication, without long-term current use of insulin ([facility]) documented in this encounter Additional Health Concerns Assessment Noted Time PHQ-9 Depression Total Score: 0 10/20/19 23 10:42 AM EDT documented as of this encounter Care Teams Corn Detasseler Machine Operator Relationship Specialty Start Date End Date Naa Chase MD [address] [place] [address] PCP - General Internal Medicine 02/19/14 documented as of this encounter
--- OUTSIDE RECORDS SUMMARY | 2024-11-05 11:39 | XMS_ITS | Encounter Summary ---
Author Organization [employer] Address [address] [facility] 7[address] [place] [address] Care Team Providers Care Telecommunications Cable Jointer Name Role Phone Naa Chase MD Primary Care Provider [phone] Reason for Visit * Reason Comments Med Refill Encounter Details Date Type Department Care Team ([facility] Contact Info) Description 12/06/2022 Refill [facility] [address] [place] [address] Genevieve Chaudhry DO [address] [place] [address] Type 2 diabetes mellitus without complication, without long-term current use of insulin ([facility]) Social History Tobacco Use Types Packs/Day Years [...] Upcoming Encounters Date Type Department Care Team ([facility] Contact Info) Description 02/09/2025 10:00 AM EDT Office Visit [facility] [address] [place] [address] Naa Chase MD [address] [place] [address] documented as of this encounter Visit Diagnoses Diagnosis Type 2 diabetes mellitus without complication, without long-term current use of insulin ([facility]) documented in this encounter Additional Health Concerns Assessment Noted Time PHQ-9 Depression Total Score: 0 10/20/19 23 10:42 AM EDT documented as of this encounter Care Teams Telecommunications Cable Jointer Relationship Specialty Start Date End Date Naa Chase MD [address] [place] [address] PCP - General Internal Medicine 02/19/14 documented as of this encounter
--- OUTSIDE RECORDS SUMMARY | 2024-11-05 11:39 | XMS_ITS | Encounter Summary ---
Author Organization [employer] Address [address] [facility] 7[address] [place] [address] Care Team Providers Care Machine Hostler Name Role Phone Naa Chase MD Primary Care Provider [phone] Encounter Details Date Type Department Care Team ([facility] st Contact Info) Description 11/05/2024 10:00 AM EDT Office Visit [facility] [address] [place], [place] [phone] Naa Chase MD [address] [place] [address] Essential hypertension (Primary Dx); Type 2 diabetes mellitus without complication, without long-term current use of insulin ([facility]) Social History Tobacco Use Types Packs/Day Years [...] AM EDT documented as of this encounter Last Filed Vital Signs Vital Sign Reading Time Taken Comments Blood Pressure 116/72 11/05/2024 9:54 AM EDT Pulse 81 11/05/2024 9:54 AM EDT Temperature 36.6 ??C (97.9 ??F) 11/05/2024 9:54 AM ED T Respiratory Rate 20 11/05/2024 9:54 AM EDT Oxygen Saturation 98% 11/05/2024 9:54 AM EDT Inhaled Oxygen Concentration - - Weight 92.1 kg (203 lb) 11/05/2024 9:54 AM EDT Height 169 cm (5' 6.54 ) 11/05/2024 9:54 AM EDT Body Mass Index 32.24 11/05/2024 9:54 AM EDT documented in this encounter Plan of Treatment Upcoming Encounters Date Type Department Care Team (Late st Contact Info) Description 02/09/2025 10:00 AM EDT Office Visit [facility] [address] [place] [address] Naa Chase MD [address] [place] [address] Scheduled Orders Name Type Priority Associated Diagnoses Orde r Schedule POCT Glucose Point of Care Testing Routine Type 2 diabetes mellitus without complication, without long-term current use of insulin ([facility]) Ordered: 11/05/2024 Albumin, Random Urine W/Creatinine Lab Routine Type 2 diabetes mellitus without complication, without long-term current use of insulin (CMS/HCC) Expected: 11/05/2024 (Approximate), Expires: 11/05/2025 documented as of this encounter Visit Diagnoses Diagnosis Essential hypertension- Primary Unspecified essential hypertension Type 2 diabetes mellitus without complication, without long-term current use of insulin ([facility]) documented in this encounter Additional Health Concerns Assessment Noted Time PHQ-9 Depression Total Score: 0 07/10/19 25 4:16 PM EST documented as of this encounter Care Teams Machine Hostler Relationship Specialty Start Date End Date Naa Chase MD [address] [place] [phone] PCP - General Internal Medicine 02/19/14 documented as of this encounter
--- OUTSIDE RECORDS SUMMARY | 2024-11-05 11:39 | XMS_ITS | Clinical Summary ---
Author Organization [employer] Address [address] [facility] 7[address] [place] [address] Care Team Providers Care Flasher Adjuster Name Role Phone Naa Chase MD Primary Care Provider [phone] Allergies Active Allergy Reactions Criticality Noted Date Comments Penicillin V Unknown 06/20/2010 Penicillins 09/07/2022 Medications nystatin (Mycostatin) cream Apply topically every 12 (twelve) hours. 30 g 023 Active candesartan (Atacand) 4 MG tabletIndications:E ssential hypertension TAKE 1 TABLET (4 MG) BY MOUTH IN THE MORNING 90 tablet 3 024 2024 Active nystatin (Mycostatin) 061769 UNIT/GM powderIndications:I ntertrigo of web of toe Apply topically 2 times daily. 60 g 024 2024 Active glimepiride (Amaryl) 2 MG tabletIndications:T ype 2 diabetes mellitus without complication, without long-term current use of insulin ([facility]) TAKE 1 TABLET (2 MG) BY MOUTH IN THE MORNING 90 tablet 3 024 Active doxazosin (Cardura) 8 MG tabletIndications:B enign prostatic hyperplasia, unspecified whether lower urinary tract symptoms present TAKE 1 TABLET BY MOUTH AT BEDTIME 90 tablet 3 024 Active cetirizine (ZyrTEC) 10 MG tabletIndications:S easonal allergies Take 1 tablet (10 mg) by mouth Once per day. 90 tablet 3 025 2025 Active celecoxib (CeleBREX) 200 MG capsuleIndications: Chronic bilateral low back pain without sciatica TAKE 1 CAPSULE(200 MG) BY MOUTH IN THE MORNING 30 capsule 3 025 Active atorvastatin (Lipitor) 40 MG tabletIndications:O ther hyperlipidemia TAKE 1 TABLET BY MOUTH EVERY DAY IN THE MORNING 90 tablet 2 025 Active famotidine (Pepcid) 20 MG tabletIndications:C hronic gastroesophageal reflux disease TAKE 1 TABLET BY MOUTH AT BEDTIME 90 tablet 2 025 Active Dulaglutide (Trulicity) 3 MG/0.5ML solution auto-injectorIndica tions:Type 2 diabetes mellitus without complication, without long-term current use of insulin ([facility]) Inject 3 mg under the skin 1 (one) time per week. 2 mL 11 Active Blood Glucose Monitoring Suppl (FreeStyle Stanton Lite) w/Device kitIndications:Type 2 diabetes mellitus without complication, without long-term current use of insulin (CMS/[facility]) Use to test blood sugar 1 times daily 1 kit Active Alcohol Swabs (Alcohol Prep) padsIndications:Typ e 2 diabetes mellitus without complication, without long-term current use of insulin (CMS/[facility]) Check BS once a day 100 each 025 Active FREESTYLE LITE test stripIndications:Ty pe 2 diabetes mellitus without complication, without long-term current use of insulin (CMS/HCC) Check BS once a day 100 each 025 Active Lancets Ultra Thin 30G miscIndications:Typ e 2 diabetes mellitus without complication, without long-term current use of insulin ([facility]) Check BS once a day 100 each Active empagliflozin (Jardiance) 10 MG Take 1 tablet (10 mg) by mouth Once per day. 30 tablet 1 025 Active empagliflozin (Jardiance) 10 MGIndications:Type 2 diabetes mellitus without complication, without long-term current use of insulin (CMS/HCC) Take 1 tablet (10 mg) by mouth Once per day. 30 tablet 11 025 2025 Active Alcohol Swabs (Alcohol Prep) padsIndications:Typ e 2 diabetes mellitus without complication, without long-term current use of insulin (CMS/[facility]) Check BS once a day 100 each 3 023 2024 Discontinued(R eorder (will not trigger notification to Pharmacy)) FREESTYLE LITE test stripIndications:Ty pe 2 diabetes mellitus without complication, without long-term current use of insulin ([facility]) Check BS once a day 100 each 3 023 2024 Discontinued(R eorder (will not trigger notification to Pharmacy)) Lancets Ultra Thin 30G miscIndications:Typ e 2 diabetes mellitus without complication, without long-term current use of insulin ([facility]) Check BS once a day 100 each 3 023 2024 Discontinued(R eorder (will not trigger notification to Pharmacy)) dapagliflozin (Farxiga) 10 MGIndications:Type 2 diabetes mellitus without complication, without long-term current use of insulin ([facility]) Take 1 tablet (10 mg) by mouth in the morning. 90 tablet 3 023 2024 Discontinued(R eorder (will not trigger notification to Pharmacy)) famotidine (Pepcid) 20 MG tabletIndications:C hronic gastroesophageal reflux disease TAKE 1 TABLET BY MOUTH AT BEDTIME 90 tablet 3 024 2024 Discontinued(R eorder (will not trigger notification to Pharmacy)) atorvastatin (Lipitor) 40 MG tabletIndications:O ther hyperlipidemia TAKE 1 TABLET BY MOUTH EVERY DAY IN THE MORNING 90 tablet 2 024 2024 Discontinued Dulaglutide (Trulicity) 3 MG/0.5ML solution auto-injectorIndica tions:Type 2 diabetes mellitus without complication, without long-term current use of insulin ([facility]) Inject 3 mg under the skin every 7 (seven) days AND 3 mg every 7 (seven) days. 2 mL 2 025 2024 Discontinued(D ose adjustment) Dulaglutide (Trulicity) 4.5 MG/0.5ML solution auto-injectorIndica tions:Type 2 diabetes mellitus without complication, without long-term current use of insulin ([facility]) Inject 4.5 mg under the skin every 7 (seven) days. 2 mL 1 025 2024 Discontinued dapagliflozin (Farxiga) 10 MGIndications:Type 2 diabetes mellitus without complication, without long-term current use of insulin (CMS/HCC) Take 1 tablet (10 mg) by mouth Once per day. 90 tablet 3 025 2024 Discontinued(A lternate therapy) Active Problems Problem Noted Date Diagnosed Date Decreased hearing of both ears 08/21/2024 Type 2 diabetes mellitus 09/07/2022 Hyperlipidemia 09/07/2022 BPH (benign prostatic hyperplasia) 09/07/2022 Chronic bilateral low back pain 09/07/2022 Chronic gastroesophageal reflux disease 09/08/19 Essential hypertension 06/06/2011 Encounters Date Type Department Care Team Description 11/05/2024 10:00 AM EDT Office Visit [facility] [address] [place] [address] Naa Chase MD Essential hypertension (Primary Dx); Type 2 diabetes mellitus without complication, without long-term current use of insulin (CMS/HCC) 11/05/2024 Travel 10/30/2024 Orders Only [facility] [address] [place] [address] Naa Chase MD Type 2 diabetes mellitus without complication, without long-term current use of insulin (CMS/HCC) (Primary Dx) 10/30/2024 Telephone [facility] [address] [place] [address] Jennifer Newton PharmD 10/22/2024 9:00 AM EDT Office Visit [facility] [address] [place] [address] Naa Chase MD Type 2 diabetes mellitus without complication, without long-term current use of insulin (CMS/HCC) (Primary Dx); Type 2 diabetes mellitus without complication, without long-term current use of insulin (CMS/HCC); Essential hypertension 10/22/2024 Travel 10/20/2024 Telephone [facility] [address] [place] [address] Naa Chase MD Medication Question 10/19/2024 Refill [facility] [address] [place] [address] Jose Dubon MD Other hyperlipidemia; Chronic gastroesophageal reflux disease 10/19/2024 Refill [facility] [address] [place] [address] Naa Chase MD Chronic gastroesophageal reflux disease 10/15/2024 Orders Only [facility] [address] [place] [address] Naa Chase MD Type 2 diabetes mellitus without complication, without long-term current use of insulin ([facility]) (Primary Dx) 10/15/2024 Telephone [facility] [address] [place] [address] Naa Chase MD Medication Question 10/14/2024 Refill [facility] [address] [place] [address] aNa Chase MD Type 2 diabetes mellitus without complication, without long-term current use of insulin ([facility]) 08/30/2024 Refill [facility] [address] [place] [address] Naa Chase MD Chronic bilateral low back pain without sciatica 08/21/2024 1:00 PM EST Office Visit [facility] [address] [place] [address] Naa Chase MD Decreased hearing of both ears (Primary Dx); Pelvic pain; Perineal pain 08/21/2024 Travel 08/18/2024 Telephone [facility] [address] [place] [address] Naa Chase MD chart prep from Last 3 Months Immunizations Immunization Administration Dates Next Due Influenza injectable quadrivalent preservative f ree 06/05/2016,07/07/2015 Influenza, IIV3, injectable 05/09/2006 Pneumococcal Polysaccharide PPSV23 02/17/2005 TD (adult), 2 Lf tetanus tox oid, preservative free, adsorbed 10/30/2002 Tdap 01/01/2020 Zoster, Recombinant 01/01/2020 Social History Tobacco Use Types Packs/Day Years Used Date Smoking Tobacco: Never Passive Smoke Exposure: Never Smokeless Tobacco: Never Tobacco Cessation:Counseling Given: Not Answered Alcohol Use Standard Drinks/Week Comments Never 0 [...] not to disclose 2021 10:16 AM EDT Last Filed Vital Signs Vital Sign Reading [...] Mass Index 32.24 11/05/2024 9:54 AM EDT Plan of Treatment Upcoming Encounters Date Type Department Care Team (Late st Contact Info) Description 02/09/2025 10:00 AM EDT Office Visit [facility] [address] [place] [address] Naa Chase MD [address] [place] [address] Health Maintenance Due Date Last Done Comments CT Colonography 1954 FIT DNA/Cologuard 1954 FIT 1954 FOBT 1954 Sigmoidoscopy 1954 Eye Exam 1964 Dental Oral Exam 09/04/2023 03/05/2023 Colonoscopy 10/21/2023 10/20/2020 Colorectal Cancer Screening 10/21/2023 Diabetes: Urine Protein Screening 10/30/2024 10/31/2023, 09/25/2022, 09/02/2019 Dental Prophylaxis 11/25/2024 05/26/2024, 0 09/04/2023, 03/05/2023 Influenza Vaccine (#1) 2024 6, 07/07/2015, 05/09/2006 Postponed from 02/24/2024 (Patient Refused) Diabetes: Hemoglobin A1C 01/21/202510/22/ 025, 07/02/2024, 02/21/2024, Additional history exists Pneumococcal Vaccine: 50+ Years (2 of 2 - PCV) 02/20/2025 02/17/2005 Postponed from 02/17/2006 (Patient Refused) Zoster Vaccines (2 of 2) 02/20/2025 01/01/2020 Pos tponed from 02/26/2020 (Patient Refused) Dental X-Ray: Bitewings 05/27/2025 05/26/2024, 03/05 COVID-19 Vaccine ( season) 2025 12/03/2020, 11/05/2020 Postponed from 02/24/2024 (Patient Refused) Diabetes: Foot Exam 07/02/2025 07/02/2024, 04/20/2023, 04/20/2023, Additional history exists Lipid Panel 07/02/2025 07/02/2024, 05/0 01/2024, 09/25/2022 Alcohol/Substance Use Screening 07/10/2025 07/10/2024 Depression Screening 07/10/2025 07/10/2024, 07/10/19 SDOH Screening 07/10/2025 07/10/2024 Tobacco Screening 11/05/2025 11/05/2024 Dental X-Ray: Full Mouth 03/06/2026 03/05/2023 RSV Patients and Patients Aged 60 years or older (1 - 1-dose 75+ series) 2029 DTaP/Tdap/Td Vaccines (2 - Td or Tdap) 12/31/2029 01/01/2020, 10/30/2002 Hepatitis C Screening Completed 07/02/2024 HIB Vaccines Aged Out No longer eligi ble based on patient's age to complete this topic HPV Vaccines Aged Out No longer eligi ble based on patient's age to complete this topic Hepatitis A Vaccines Aged Out No long er eligible based on patient's age to complete this topic Hepatitis B Vaccines Aged Out No long er eligible based on patient's age to complete this topic IPV Vaccines Aged Out No longer eligi ble based on patient's age to complete this topic Meningococcal B Vaccine Aged Out No l onger eligible based on patient's age to complete this topic Meningococcal Vaccine Aged Out No kali zain eligible based on patient's age to complete this topic RSV under 20 months Aged Out No longe r eligible based on patient's age to complete this topic Rotavirus Vaccines Aged Out No longer eligible based on patient's age to complete this topic Procedures Procedure Name Priority Date/Time Associated Diagnosis Comments POCT GLUCOSE Routine 10/22/2024 11:46 AM EDT Type 2 diabetes mellitus without complication, without long-term current use of insulin ([facility]) POCT GLYCATED HEMOGLOBIN, TOTAL Routine 10/22/2024 11:45 AM EDT Type 2 diabetes mellitus without complication, without long-term current use of insulin (CMS/HCC) AMB REFERRAL TO AUDIOLOGY Routine 09/16/2024 Decreased hearing of both ears HEPATITIS C AB W/REFL TO HCV RNA, QN, PCR Routine 07/02/2024 2:38 PM EST Essential hypertension Type 2 diabetes mellitus without complication, without long-term current use of insulin (CMS/HCC) LIPID PANEL, STANDARD Routine 07/02/2024 2:38 PM EST Other hyperlipidemia Full PROPHYLAXIS - ADULT Routine 05/26/2024 11:00 AM EST BITEWINGS - 4 RADIOGRAPHIC IMAGES Routine 05/26/2024 11:00 AM EST ALBUMIN, RANDOM URINE W/CREATININE Routine 10/31/2023 11:00 AM EDT Type 2 diabetes mellitus without complication, without long-term current use of insulin (CMS/HCC) Annual physical exam INTRAORAL - COMPLETE SERIES OF RADIOGRAPHIC IMAGES Routine 03/05/2023 9:00 AM EDT PERIODIC ORAL EVALUATION - ESTABLISHED PATIENT Routine 03/05/2023 9:00 AM EDT HM COLONOSCOPY Routine 10/20/2020 from Last 3 Months or Most Recently Relevant to Health Maintenance Results * (ABNORMAL) POCT Glucose (10/22/2024 11:46 AM EDT) Glucose Blood, POC 208(A) 60 - 200 mg/dL QC Media Lot # [id number] Lot# Expiration Date 659,025 Comment:fasting Blood Capillary blood specimen / Unknown 10/22/2024 11:46 AM EDT Naa Chase MD POINT OF CARE TEST ENTER/ED IT ORDERABLES Final Result * (ABNORMAL) POCT HGB A1C (10/22/2024 11:45 AM EDT) Hemoglobin A1C 8.5(A) 4.0 - 6.0 % QC Media Lot # [id number] Lot# Expiration Date [id number] Blood 10/22/2024 11:4 5 AM EDT Naa Chase MD POINT OF CARE TEST ENTER/ED IT ORDERABLES Final Result * Referral to Audiology (09/16/2024) Naa Chase MD OUTPATIENT REFERRAL ORDERAB LES Final Result * Hepatitis C Antibody with Reflex to HCV, RNA, Quantitative, Real-Time PCR (07/02/2024 2:38 PM EST) Hepatitis C Antibody Nonreactive Nonreactive [facility] Comment:Antibodies to HCV no t detected; does not exclude early acuteHCV infection. Blood Venous blood specimen / Unknown 07/02/2024 2:38 PM EST 07/02/2024 5:26 PM EST Naa Chase MD LAB BLOOD ORDERABLES Final Result [facility] [address] [place] [address] [phone] * (ABNORMAL) Lipid Panel, Standard (07/02/2024 2:38 PM EST) Triglycerides 235(H) <150 mg/dL [facility] Comment:Desirable Triglyceri de: less than 150 mg/dLBorderline High Triglyceride 150-199 mg/dLHigh Triglyceride: 200-499 mg/dLVery High Triglyceride: greater than or equal to 5OO mg/dL Cholesterol 134 <200 mg/dL [facility] Comment:Desirable Cholestero l: less than 200 mg/dLBorderline High Cholesterol: 200-239 mg/dLHigh Cholesterol: greater than 239 mg/dL LDL Cholesterol Calculated 55 <100 mg/dL [facility] Comment:Desirable LDL: less than 100 mg/dLNear Optimal/Above Optimal LDL: 110- 129 mg/dLBorderline High LDL: 130-159 mg/dLHigh LDL: 160-189 mg/dLVery High LDL: greater than or equal to 190 mg/dL HDL Cholesterol 32(L) >40 mg/dL [facility] Comment:Desirable HDL: great er than 40 mg/dL Note: This HDL assay may give artificially low results in patients with liver disease. Blood Venous blood specimen / Unknown 07/02/2024 2:38 PM EST 07/02/2024 5:26 PM EST Naa Chase MD LAB BLOOD ORDERABLES Final Result Performing Organization Address [facility] de Phone Number [facility] [address] [place] [phone] * (ABNORMAL) Albumin, Random Urine W/Creatinine (10/31/2023 11:00 AM EDT) Creatinine, Urine 91.36 mg/dL [facility] Microalbumin Urine 47.0 mg/L [facility] Microalbum Creatinine Ratio Ur 51.4(H) <30 ug/mg cr [facility] Comment:Albumin/Creatinine R atio Reference Ranges: Normal: < 30 ug/mg creatinine Microalbuminuria: 30 - 300 ug/mg creatinineClinical Albuminuria: > 300 ug/mg creatinine Urine (Urine, Random) 10/31/2023 11:00 AM EDT 10/31/2023 2:25 PM EDT Naa Chase MD LAB URINE ORDERABLES Final Result Performing Organization Address [facility] Co de Phone Number [facility] [address] [place] [phone] * Hm Colonoscopy (10/20/2020) Colonoscopy Normal Normal Narrative Hanna Triplett - 10/20/2020 Recommended 3 year follow up Historical Provider HEALTH MAINTENANCE Final Result from Last 3 Months or Most Recently Relevant to Health Maintenance Insurance [facility] [employer] (HMO D-SNP) [facility] - [facility] Care Teams Flasher Adjuster Relationship Specialty Start Date End Date Naa Chase MD [address] [place] [address] PCP - General Internal Medicine 02/19/14
--- OUTSIDE RECORDS SUMMARY | 2024-11-05 11:39 | XMS_ITS | Encounter Summary ---
Author Organization [employer] Address [address] [facility] 7[address] [place] [address] Care Team Providers Care Corrosion Control Specialist Name Role Phone Naa Chase MD Primary Care Provider [phone] Encounter Details Date Type Department Care Team (Late st Contact Info) Description 04/27/2023 Abstract [facility] [address] [place] [address] Hanna Triplett Social History Tobacco Use Types Packs/Day Years Used Date Smoking Tobacco: Never Passive Smoke Exposure: Never Smokeless Tobacco: Never Alcohol Use Standard Drinks/Week Comments Never 0 (1 standard drink = 0.6 oz pur e alcohol) Depression Answer Date Recorded Patient Health Questionnaire-9 Score 0 10/19/2022 Housing Stability Answer Date Recorded What is your housing situation today? I have alexy morales 04/10/[address] you li ve. Do you have problems with any of the following? None of the above 04/10/2023 Food Insecurity Answer Date Recorded Within the past 12 months, y ou worried that your food would run out before you got money to buy more: Never True 04/10/2023 Within the past 12 months,th e food you bought just didn't last and you didn't have enough money to get more: Never True Transportation Answer Date Recorded In the past 12 months, has l ack of transportation kept you from medical appts, meetings, work or from getting things needed for daily living? No 04/10/2023 Utilities Answer Date Recorded In the past 12 months, has t he electric, gas, oil or water company threatened to shut off services in your home? No 04/10/2023 Depression Answer Date Recorded Patient Health Questionnaire-2 Score 0 10/19/2022 Sex and Gender Information Value Date Recorded Sex Assigned at Male 04/24/2022 10:16 AM EDT Legal Sex Male 10:16 AM EDT Gender Identity Male 04/24/2022 10:16 AM EDT Sexual Orientation Choose not to disclose 2021 10:16 AM EDT documented as of this encounter Plan of Treatment Upcoming Encounters Date Type Department Care Team ([facility] st Contact Info) Description 02/09/2025 10:00 AM EDT [facility] [address] [place] [address] Naa Chase MD [address] [place] [address] documented as of this encounter Procedures Procedure Name Priority Date/Time Associated Diagnosis Comments COLONOSCOPY Routine 10/20/2020 documented in this encounter Results * Hm Colonoscopy (10/20/2020) Colonoscopy Normal Normal Narrative Vijay Triplettba - 10/20/2020 Recommended 3 year follow up us Historical Provider HEALTH MAINTENANCE Final Result documented in this encounter Visit Diagnoses Not on filedocumented in this encounter Additional Health Concerns Assessment Noted Time PHQ-9 Depression Total Score: 0 10/20/19 23 10:42 AM EDT documented as of this encounter Care Teams Corrosion Control Specialist Relationship Specialty Start Date End Date Naa Chase MD [address] [place] [address] PCP - General Internal Medicine 02/19/14 documented as of this encounter
--- OUTSIDE RECORDS SUMMARY | 2024-11-05 11:39 | XMS_ITS | Encounter Summary ---
Author Organization [employer] Address [address] [facility] [address] [place] [address] Care Team Providers Care Dry Wall Applicator Name Role Phone Naa Chase MD Primary Care Provider [phone] Reason for Visit * Reason Comments Med Change Request Encounter Details Date Type Department Care Team ([facility] Contact Info) Description 09/29/2022 Refill [facility] [address] [place], [place] [phone] Naa Chase MD [address] [place] [address] Type 2 diabetes mellitus without complication, without long-term current use of insulin ([facility]) Social History Tobacco Use Types Packs/Day Years Used Date Smoking Tobacco: Never Passive Smoke Exposure: Never Smokeless Tobacco: Never Alcohol Use Standard Drinks/Week Comments Never 0 (1 standard drink = 0.6 oz pur e alcohol) Sex and Gender Information Value Date Recorded Sex Assigned at Male 04/24/2022 10:16 AM EDT Legal Sex Male 10:16 AM EDT Gender Identity Male 04/24/2022 10:16 AM EDT Sexual Orientation Choose not to disclose 2021 10:16 AM EDT COVID-19 Exposure Response Date Recorded In the last 10 days, have yo u been in contact with someone who was confirmed or suspected to have Coronavirus/COVID-19? No / Unsure 09/26/2022 2:55 PM EDT documented as of this encounter Plan of Treatment Upcoming Encounters Date Type Department Care Team ([facility] Contact Info) Description 02/09/2025 10:00 AM EDT Office Visit [facility] [address] [place] [address] Naa Chase MD [address] [place] [address] documented as of this encounter Visit Diagnoses Diagnosis Type 2 diabetes mellitus without complication, without long-term current use of insulin ([facility]) documented in this encounter Care Teams Dry Wall Applicator Relationship Specialty Start Date End Date Naa Chase MD [address] [place] [address] PCP - General Internal Medicine 02/19/14 documented as of this encounter
--- OUTSIDE RECORDS SUMMARY | 2024-11-05 11:39 | XMS_ITS | Encounter Summary ---
Author Organization [employer] Address [address] [facility] [address] [place] [address] Care Team Providers Care Security Associate Name Role Phone Naa Chase MD Primary Care Provider [phone] Encounter Details Date Type Department Care Team (Late st Contact Info) Description 02/14/2024 Orders Only [facility] [address] [place] [address] Naa Chase MD [address] [place] [address] [employer] Social History Tobacco Use Types Packs/Day Years Used Date Smoking Tobacco: Never Passive Smoke Exposure: Never Smokeless Tobacco: Never Alcohol Use Standard Drinks/Week Comments Never 0 (1 standard drink = 0.6 oz pur e alcohol) Depression Answer Date Recorded Patient Health Questionnaire-9 Score 5 10/31/2023 Patient Health Questionnaire-9 Score 5 10/31/2023 Last PHQ-9: Questionnaire Data Not on file 0 10/31/2023 Housing Stability Answer Date Recorded What is [...] Answer Date Recorded Patient Health Questionnaire-2 Score 4 10/31/2023 Sex and Gender Information Value Date Recorded [...] Description 02/09/2025 10:00 AM EDT Office Visit [facility] [address] [place] [address] Naa Chase MD [address] [place] [address] documented as of this encounter Visit Diagnoses Diagnosis [employer] documented in this encounter Additional Health Concerns Assessment Noted Time PHQ-9 Depression Total Score: 5 10/31/19 24 10:06 AM EDT documented as of this encounter Care Teams Security Associate Relationship Specialty Start Date End Date Naa Chase MD [address] [place] [address] PCP - General Internal Medicine 02/19/14 documented as of this encounter
--- OUTSIDE RECORDS SUMMARY | 2024-11-05 11:39 | XMS_ITS | Encounter Summary ---
Author Organization [employer] Address [address] [facility] [address] [place] [address] Care Team Providers Care Field Coil Winder Name Role Phone Naa Chase MD Primary Care Provider [phone] Encounter Details Date Type Department Care Team (Latest Contact Info) Description 11/05/2024 Travel Social History Tobacco Use Types Packs/Day Years [...] Upcoming Encounters Date Type Department Care Team ([facility] st Contact Info) Description 02/09/2025 10:00 AM EDT Office Visit [facility] [address] [place] [address] Naa Chase MD [address] [place] [address] documented as of this encounter Visit Diagnoses Not on filedocumented in this encounter Additional Health Concerns Assessment Noted Time PHQ-9 Depression Total Score: 0 07/10/19 25 4:16 PM EST documented as of this encounter Care Teams Field Coil Winder Relationship Specialty Start Date End Date Naa Chase MD [address] [place] [address] PCP - General Internal Medicine 02/19/14 documented as of this encounter
--- OUTSIDE RECORDS SUMMARY | 2024-11-05 11:39 | XMS_ITS | Encounter Summary ---
Author Organization [employer] Address [address] [facility] [address] [place] [address] Care Team Providers Care Middle School Football Coach Name Role Phone Naa Chase MD Primary Care Provider [phone] Reason for Visit * Reason Comments Med Refill Encounter Details Date Type Department Care Team (Late Contact Info) Description 11/22/2022 Refill [facility] [address] [place], [place] [phone] Genevieve Chaudhry DO [address] [place] [address] Other hyperlipidemia; Chronic gastroesophageal reflux disease; Type 2 diabetes mellitus without complication, without long-term current use of insulin ([facility]) Social History Tobacco Use Types Packs/Day Years [...] Encounters Date Type Department Care Team (Late Contact Info) Description 02/09/2025 10:00 AM EDT Office Visit [facility] [address] [place], [place] [phone] Naa Chase MD [address] [place] [address] documented as of this encounter Visit Diagnoses Diagnosis Other hyperlipidemia Chronic gastroesophageal reflux disease Type 2 diabetes mellitus without complication, without long-term current use of insulin ([facility]) documented in this encounter Additional Health Concerns Assessment Noted Time PHQ-9 Depression Total Score: 0 10/20/19 23 10:42 AM EDT documented as of this encounter Care Teams Middle School Football Coach Relationship Specialty Start Date End Date Naa Chase MD [address] [place] [address] PCP - General Internal Medicine 02/19/14 documented as of this encounter
--- OUTSIDE RECORDS SUMMARY | 2024-11-05 11:39 | XMS_ITS | Encounter Summary ---
Author Organization [employer] Address [address] [facility] [address] [place] [address] Care Team Providers Care Distributor Sales Manager Name Role Phone Naa Chase MD Primary Care Provider [phone] Encounter Details Date Type Department Care Team ([facility] st Contact Info) Description 10/31/2023 Orders Only [facility] [address] [place], [place] [phone] Naa Chase MD [address] [place] [address] Social History Tobacco Use Types Packs/Day Years [...] AM EDT documented as of this encounter Functional Status * Over the past 2 weeks, how often have you been bothered by any of the following problems? Question Answer Date of Assessment Author Patient Health Questionnaire -2 Score 4 10/31/2023 10:06 AM Kiya Lowery [place] * If you checked off any problems on this questionnaire so far, Question Answer Date of Assessment Author How difficult have these problems made it for you to do your work, take care of things at home, or get along with other people? Not difficult at all 10/31/2023 10:06 AM Marlyn Lowery [place] * Over the past 2 weeks, how often have you been bothered by any of the following problems? Question Answer Date of Assessment Author Little interest or pleasure in doing things Nearly every day 10/31/2023 10:06 AM Kiya Lowery [place] Feeling down, depressed, or hopeless Several days 10/31/2023 10:06 AM Kiya Lowery [place] Trouble falling or staying asleep, or sleeping too much Several days 10/31/2023 10:06 AM Kiya Lowery [place] Feeling tired or having little energy Not at all 10/31/2023 10:06 AM Kiya Lowery [place] Poor appetite or overeating Not at all 10/31/2023 10:06 AM Kiya Lowery [place] Feeling bad about yourself - or that you are a failure or have let yourself or your family down Not at all 10/31/2023 10:06 AM Kiya Lowery [place] Trouble concentrating on things, such as reading the newspaper or watching television Not at all 10/31/2023 10:06 AM EDT Kiya Plasencia [place] Moving or speaking so slowly that other people could have noticed? Or the opposite - being so fidgety or restless that you have been moving around a lot more than usual. Not at all 10/31/2023 10:06 AM Kiya Lowery [place] Thoughts that you would be better off or hurting yourself in some way Not at all 10/31/2023 10:06 AM EDT Marlyn Plasencia MA Patient Health Questionnaire-9 Score 5 10/31/2023 10:06 AM [employer] Graciela Plasencia ra, [place] documented as of this encounter Plan of Treatment Upcoming Encounters Date Type Department Care Team (Late st Contact Info) Description 02/09/2025 10:00 AM EDT Office Visit [facility] [address] [place] [address] Naa Chase MD [address] [place] [address] documented as of this encounter Visit Diagnoses Not on filedocumented in this encounter Additional Health Concerns Assessment Noted Time PHQ-9 Depression Total Score: 5 10/31/19 24 10:06 AM EDT documented as of this encounter Care Teams Distributor Sales Manager Relationship Specialty Start Date End Date Naa Chase MD [address] [place] [address] PCP - General Internal Medicine 02/19/14 documented as of this encounter
[2024-11-05 15:34] LABS: Creatinine Urine 234.23 mg/dL; Microalbum/Creatinine Ratio Ur 26.8 ug/mg cr (<30)
== END 2024-11-05 10:37 | disposition home or self-care (01) ==
LOC: HO.CHCLDS 10:36
PROVIDERS: Visit Provider Internal Medicine
DX: E11.9 Type 2 diabetes mellitus without complications (principal)
CPT/HCPCS: 82043; 82570

== ENCOUNTER 2024-11-19 09:45 | Day surgery (SDC) | payer OTHER, SELFPAY ==
--- OUTSIDE RECORDS SUMMARY | 2024-11-14 10:01 | XMS_ITS | Encounter Summary ---
Author Organization [employer] Address [address] [facility] [address] [place] [address] Care Team Providers Care Master Control Operator Name Role Phone Naa Chase MD Primary Care Provider [phone] Reason for Visit * Reason Comments Med Refill Encounter Details Date Type Department Care Team (Late Contact Info) Description 12/06/2022 Refill [facility] [address] [place] [address] Genevieve Chaudhry DO [address] [place] [address] Type 2 diabetes mellitus without complication, without long-term current use of insulin ([facility]) Social History Tobacco Use Types [...] Description 02/09/2025 10:00 AM EDT Office Visit [facility] [address] [place] [address] Naa Chase MD [address] [place] [address] documented as of this encounter Visit Diagnoses Diagnosis Type 2 diabetes mellitus without complication, without long-term current use of insulin ([facility]) documented in this encounter Additional Health Concerns Assessment Noted Time PHQ-9 Depression Total Score: 0 10/20/19 23 10:42 AM EDT documented as of this encounter Care Teams Master Control Operator Relationship Specialty Start Date End Date Naa Chase MD [address] [place] [address] PCP - General Internal Medicine 02/19/14 documented as of this encounter
[2024-11-14 14:50] VITALS: BMI 32.1
--- NOTE | 2024-11-18 10:11 | HO.ANESPROP2 ---
HPI - Anesthesia Eval Consult details Narrative: 69yo M for Colonoscopy Anesthesia Pre-Procedure Meds Is the patient on any of the following meds?: GLP1/DPP4 and SGLT2 Inhib PMFSH Active Problems Active Problems: All Active Problems Diverticulosis large intestine w/o perforation or abscess w/o bleeding (Acute) Tubular adenoma (Acute) HTN (hypertension) (Acute) Encounter for screening colonoscopy (Acute) History of back surgery (Acute) Past Medical History Medical History (Updated 11/14/24 @ 15:00 by Ninoska Booth RN) Back disorder GERD (gastroesophageal reflux disease) Diabetes Sleep apnea Elevated cholesterol HTN (hypertension) Family History Family History Father No family history of colorectal cancer Family history of problems with anesthesia: No Surgical History Surgical History (Updated 11/14/24 @ 14:46 by Ninoska Booth RN) History of back surgery Hx of colonoscopy History of Problems with Anesthesia: No Social History Social History Household Members: Spouse Alcohol intake: never Current occupational status: unemployed Meds Allergies Allergy/AdvReac Type Severity Reaction Status Date / Time Penicillins [PENICILLINS] Allergy Unknown RASH Verified 04/02/24 10:57 Home Medications ?Medication ?Instructions ?Recorded ?Confirmed ?Last Taken ?Type atorvastatin 40 mg tablet 40 mg PO BEDTIME 04/06/20 11/14/24 Unknown History celecoxib 200 mg capsule 200 mg PO BID PRN Pain 04/06/20 11/14/24 Unknown History doxazosin 8 mg tablet 8 mg PO BEDTIME 04/06/20 11/14/24 Unknown History glimepiride 2 mg tablet 2 mg PO QAM 04/06/20 11/14/24 Unknown History loratadine 10 mg tablet 10 mg PO DAILY 04/06/20 11/14/24 Unknown History candesartan 4 mg tablet 4 mg PO DAILY 04/02/24 11/14/24 Unknown History dulaglutide 1.5 mg/0.5 mL 1.5 mg subcut QWEEK 04/02/24 11/14/24 Unknown History subcutaneous pen injector (Trulicity) empagliflozin 10 mg tablet 10 mg PO DAILY 11/14/24 11/14/24 Unknown History (Jardiance) Exam Height,Weight and Vital Signs: Height 5 ft 7 in Weight 92.986 kg Assessment and Plan Assessment Anesthesia Assessment: Chart Reviewed Final Anesthetic Review Family History of Problems with Anesthesia: No History of Problems with Anesthesia: No
[2024-11-19] MEDS: Lactated Ringers 1,000 ML 100 ML IVCONT (10:38)
[2024-11-19 10:56] VITALS: BMI 30.9
--- NOTE | 2024-11-19 10:59 | P.HPSUR_ITS ---
Pre-Procedural Eval Section A - 24 Hr Update-Section A only Date of Service: 11/19/24 Section B - Complete if H&P > 30 days Chief Complaint: Encounter for screening for malignant neoplasm of Relevant Family History (Specify if Yes): No Relevant Social History: None Present Medications: see Short Stay Collaborative assessment Medical History: Significant History (Back disorder GERD (gastroesophageal ref lux disease) Diabetes Sleep apnea Elevated cholesterol HTN (hypertension) History of Previous Operations: Relevant previous surgery/procedure and date(s) ( History of back surgery Hx of colonoscopy) Allergies: Allergies Allergy/AdvReac Type Severity Reaction Status Date / Time Penicillins [PENICILLINS] Allergy Unknown RASH Verified 04/02/24 10:57 Review of Systems Sugical H&P ROS: Negative: Constitution, Cardiovascular, Respiratory, Neurological, Psychiatric, Hem-Onc, Allergic/Immunologic, Gastrointestinal, Genitourinary, Musculoskeletal, Integumentary, Endocrine and Eyes/Ears/Nose/Throat Exam Surgical H&P Exam: Normal: HEENT, Normal: Heart, Normal: Lungs, Normal: Extremities, Normal: Abdomen, Normal: Skin and Normal: Neurological Plan Diagnosis/Plan: Unchanged I have reviewed the history and physical and performed a pertinent physical examination on my patient. No changes have occurred unless specified. Time Spent With Patient Time: Total time managing care of this patient today ____ minutes.
[2024-11-19 11:18] VITALS: BP 122/72; PULSE 66; RESP 18; TEMP 36.8; O2SAT 95
[2024-11-19 11:20] LABS: Glucose, Whole Blood 178 mg/dL (60-115)
--- NOTE | 2024-11-19 11:27 | P.CONAN_ITS ---
[facility] Active Problems Active Problems: All Active Problems Diverticulosis large intestine w/o perforation or abscess w/o bleeding (Acute) Tubular adenoma (Acute) HTN (hypertension) (Acute) Encounter for screening colonoscopy (Acute) History of back surgery (Acute) Past Medical History Medical History Back disorder GERD (gastroesophageal reflux disease) Diabetes Sleep apnea Elevated cholesterol HTN (hypertension) Functional capacity: independent ambulation Family History Family History Father No family history of colorectal cancer Family history of problems with anesthesia: No Surgical History Surgical History History of back surgery Hx of colonoscopy History of Problems with Anesthesia: No Social History Social History Household Members: Spouse Household Members Other:: son Are you a primary patient care assistant to a significant other at home: No Do you presently have visiting nurse or other home services: No Alcohol intake: never Patient Tobacco Use Status: Never used Tobacco Have you been hit, kicked, punched, or otherwise hurt by someone within the past year? If so, by whom?: No Are you DNR?: No Advance Directives: No Advance Directives Information Provided: Yes Poor oral hygiene: No Current occupational status: unemployed Meds Allergies Allergy/AdvReac Type Severity Reaction Status Date / Time Penicillins [PENICILLINS] Allergy Unknown RASH Verified 11/19/24 11:20 Active Medications: Current Medications Lactated Ringer's (Lr) 1,000 mls @ 100 mls/hr IVCONT .Q10H LUIS ARMANDO Last Admin: 11/19/24 10:38 Dose: 100 mls/hr Home Medications ?Medication ?Instructions ?Recorded ?Confirmed ?Last Taken ?Type atorvastatin 40 mg tablet 40 mg PO BEDTIME 04/06/20 11/14/24 Unknown History celecoxib 200 mg capsule 200 mg PO BID PRN Pain 04/06/20 11/14/24 Unknown History doxazosin 8 mg tablet 8 mg PO BEDTIME 04/06/20 11/14/24 Unknown History glimepiride 2 mg tablet 2 mg PO QAM 04/06/20 11/14/24 Unknown History loratadine 10 mg tablet 10 mg PO DAILY 04/06/20 11/14/24 Unknown History candesartan 4 mg tablet 4 mg PO DAILY 04/02/24 11/14/24 Unknown History dulaglutide 1.5 mg/0.5 mL 1.5 mg subcut QWEEK 04/02/24 11/14/24 11/11/24 History subcutaneous pen injector (Trulicity) empagliflozin 10 mg tablet 10 mg PO DAILY 11/14/24 11/14/24 11/15/24 History (Jardiance) Exam Height,Weight and Vital Signs: Height 5 ft 7 in Weight 89.5 kg Last Vital Signs Temp 98.3 F 11/19/24 11:18 Pulse 66 11/19/24 11:18 Resp 18 11/19/24 11:18 BP 122/72 11/19/24 11:18 Pulse Ox 95 11/19/24 11:18 O2 Del Method Room Air 11/19/24 11:18 Pertinent Lab Results Pertinent Lab Results: Laboratory Tests 11/19/24 10:59 POC Glucose 178 H Airway Mallampati Class: III TM Dist: >3cm Neck ROM: Full Heart: RRR Lungs: CTA Assessment and Plan Assessment Anesthesia Assessment: Anesthesia Plan Discussed Final Anesthetic Review Family History of Problems with Anesthesia: No History of Problems with Anesthesia: No NPO: Yes ASA Class: II Final Preanesthetic Review: Meds/Allgs Chart Reviewed, Consent Obtained/Reviewed and Anes Risks/Benef Reviewed Patient Risk: Low Procedure Risk: Low Anesthetic Plan Anesthetic Plan: MAC: Disposition: Standard PACU
--- NOTE | 2024-11-19 12:46 | P.OPN-COLO_ITS ---
Colonoscopy Operative Note Operative Note Date of Service: 11/19/24 Narrative: Operative Information Procedure Description: Colonoscopy Indication: screening Anesthesia: MAC COLONOSCOPY Instrument: Olympus variable stiffness pediatric scope 190L Colonoscopy Monitoring: Vital signs and clinical assessment, continuous EKG monitoring, Pulse oximetry, Carbon Dioxide monitoring and blood pressure monitoring were done throughout the procedure. Colon withdrawal time was 10 minutes. Procedure: The patient was placed in the left lateral decubitis position and pre-procedure medications were administered. After a digital rectal examination of the ano-rectum, the video colonoscope was inserted into the rectum and advanced through the colon to the cecum/TI. The colonoscope was slowly withdrawn in a retrograde panoramic fashion and the colon mucosa was carefully examined including a retroflexed view of the rectum. Findings and interventions are described below. Procedure Difficulty: easy Findings: Terminal Ileum-normal Cecum:normal right sided retroflexion- normal Ascending Colon: normal Transverse Colon -normal Descending Colon:normal Sigmoid Colon: normal Rectum: Retroflexion with small internal hemorrhoids seen, grade I, x 1 sessile polyp 6-7 mm removed with cold snare and x 3 sessile polyps 4-5 mm removed with cold forceps Anorectum - normal Intervention: cold snare and cold forceps Colon preparation: Valley Bowel Preparation Scale Right colon; 3 Transverse colon: 2 Left colon; 2 (0 = Unprepared colon segment with mucosa not seen due to solid stool that cannot be cleared. 1 = Portion of mucosa of the colon segment seen, but other areas of the colon segment not well seen due to staining, residual stool and/or opaque liquid. 2 = Minor amount of residual staining, small fragments of stool and/or opaque liquid, but mucosa of colon segment seen well. 3 = Entire mucosa of colon segment seen well with no residual staining, small fragments of stool or opaque liquid) Impression and Post Procedure Diagnosis: colon polyps x 4 internal hemorrhoids Plan: High fiber diet leaflet Avoid straining at stool, epsom salts and sitz bath, anusol supps or cream Repeat Colonoscopy in 5 years if adenomataous polyps, 10 yrs if hyperplastic or earlier if clinically indicated Above findings were reviewed with the patient and relevant handouts were provided if indicated.
[2024-11-19 12:54] VITALS: BP 108/66; PULSE 70; RESP 16; TEMP 36.2; O2SAT 96
--- NOTE | 2024-11-19 12:56 | HO.POSTANES ---
Post Anesthesia Evaluation Post Anesthesia Evaluation Date of Service: 11/19/24 Vital Signs: Vital Signs Temp Pulse Resp BP Pulse Ox O2 Del Method 11/19/24 11:18 98.3 F 66 18 122/72 95 Room Air Anesthesia: Monitored Mental Status: Awake Pain Control: Satisfactory Nausea/Vomiting: None Hydration: Adequate Anesthesia-Related Issues: No Anes. Related Issues
[2024-11-19 13:05] VITALS: BP 130/69; PULSE 54; RESP 16; O2SAT 96
[2024-11-19 13:17] VITALS: BP 123/70; PULSE 62; RESP 16; TEMP 36.3; O2SAT 99
== END 2024-11-19 13:54 | disposition home or self-care (01) ==
PROVIDERS: PCP Internal Medicine; Visit Provider Internal Medicine Gastroenterology
PROC: 0DJD8ZZ Inspection of Lower Intestinal Tract, Via Natural or Artificial Opening Endoscopic (ICD-10-PCS; CPT 45378; principal; 2024-11-19 12:30)
DX: Z12.11 Encounter for screening for malignant neoplasm of colon (principal); K62.1 Rectal polyp; K64.0 First degree hemorrhoids; Z86.0101 Personal history of adenomatous and serrated colon polyps; E11.9 Type 2 diabetes mellitus without complications; I10 Essential (primary) hypertension; E78.00 Pure hypercholesterolemia, unspecified; G47.30 Sleep apnea, unspecified; Z79.02 Long term (current) use of antithrombotics/antiplatelets; Z79.85 Long-term (current) use of injectable non-insulin antidiabetic drugs; Z79.899 Other long term (current) drug therapy
CPT/HCPCS: 45385; 45380; 82947; 88305; J2003; J2704

== ENCOUNTER → 2024-11-19 09:45 | Outpatient (BNV) | payer OTHER, SELFPAY | PROVIDERS: PCP Internal Medicine; Visit Provider Internal Medicine Gastroenterology | DX: Z12.11 Encounter for screening for malignant neoplasm of colon (principal); D12.8 Benign neoplasm of rectum; K64.0 First degree hemorrhoids | CPT/HCPCS: 45385 ==